=== PATIENT | male | born 1990 | race Caucasian/White ===

== ENCOUNTER 2020-07-04 15:13 | Emergency (ER) | payer OTHER, SELFPAY ==
[2020-07-04 15:19] VITALS: BP 138/86; PULSE 125; RESP 18; TEMP 36.8; O2SAT 100; BMI 28.2
--- NOTE | 2020-07-04 16:02 | ED.GENADULT ---
HPI - General Adult General Chief complaint: Overdose Stated complaint: HEROIN OD,NARCAN GIVEN BY POLIE Time Seen by Provider: 07/04/20 15:51 Source: patient Mode of arrival: EMS Limitations: no limitations History of Present Illness HPI narrative: 30-year-old male who presents emergency department for evaluation of a narcotic overdose. The patient states that he recently was in rehab for heroin and cocaine use disorder. He states that when he was discharged from rehab, he started living with his girlfriend but this became a very difficult situation and triggered him to reuse heroin today. He states that he used 2 bags of heroin and 2 bags of cocaine injected into his right arm. He does not remember what happened but he states there was a friend that was with him who called 911. The patient was given multiple doses of intranasal heroin by the police and responded well to this treatment. He is currently awake alert has no complaints. He states that he was in his usual state of health until be used today. He denied fever, chills, chest pain, shortness of breath, nausea, vomiting, abdominal pain, diarrhea, myalgias or arthralgias. The patient states that in the past he was helped by the police to get into rehab and to get help as an outpatient any has a number to call a corporate trust officer for help. He does not want crisis counseling at this time. Related Data Previous Rx's Medication Instructions Recorded naloxone [Narcan] 4 mg INTRANASAL Q2M PRN #2 ea 07/04/20 Allergies Allergy/AdvReac Type Severity Reaction Status Date / Time amoxicillin [AMOXICILLIN] Allergy Intermediate HIVES Unverified 03/02/20 19:28 Review of Systems Review of Systems: Yes all other systems are reviewed and are negative Neurologic: Reports Abnormal speech present [facility] Past Medical History [facility] Narrative: Patient has a history of hepatitis-C but he states he was recently treated in believes that he is cured but has not followed up. The patient has a history of an appendectomy and bladder surgery in the past. He states that he smokes 3 cigarettes per day. Denies alcohol use. He states that he was using heroin daily prior to going to detox and relapse for the 1st time today and used cocaine and heroin as an injection into his right arm today. Medical History (Updated 07/04/20 @ 16:11 by Michael Rivera MD) Substance abuse Social History Social History Alcohol intake: never Smoked in Last 30 Days: No Use of substances other than those prescribed or required for medical reasons: Yes Substance Use Type: Crack/Cocaine and Heroin Advance Directives: No Advance Directives Information Provided: Yes Physical Exam Vital Signs: Vital Signs: Last Vital Signs Temp 98.2 F 07/04/20 15:19 Pulse 125 H 07/04/20 15:19 Resp 18 07/04/20 15:19 BP 138/86 07/04/20 15:19 Pulse Ox 100 07/04/20 15:19 Body Mass Index 28.2 Const: General: cooperative and healthy appearing Orientation/consciousness: oriented to person and oriented to place Limitations: no limitations HENMT: Head: Yes normal to inspection, Yes normocephalic and Yes atraumatic Ears: external ears normal General nose exam: Normal external nose present Face and sinus: Yes normal facial exam Mouth: Normal oral and palatal mucosa present Throat: Yes posterior oropharynx normal Eyes: Periorbital: periorbital findings normal Eyelids: Yes eyelids normal Conjunctivae: conjunctivae normal Sclerae: sclerae normal Corneas: corneas normal Pupils: Equal, round and reactive pupils present Direct Ophthalmoscopy: normal light reflex Neck: Neck: Yes full ROM, Yes no lymphadenopathy, Yes no meningeal signs, Yes trachea midline and Yes supple Chest: Chest palpation & inspection: normal inspection of the chest and normal palpation of entire chest wall Resp: Effort & Inspection: normal respiratory effort and able to speak in complete sentences Auscultation: clear to auscultation bilaterally Cardio: Rate: regular rate Rhythm: regular rhythm Heart sounds: S1 normal heart sound present, S2 normal heart sound present and no murmurs GI: Inspection: Yes normal to inspection Palpation (GI): Soft to palpation, nontender, no guarding, not rigid and No hepatosplenomegaly present : General: Yes no CVA tenderness Back/Spine/Pelvis: Back: no CVA tenderness Cervical Spine: normal cervical lordosis Thoracic/Lumbar Spine: thoracic and lumbar spine normal to inspection Skin: Other: Puncture site above the right axilla, does not appear to be infected, no hematoma or bruising. Does have other track curiel in this area that are well healed. Lesions: no lesions Rashes: no rashes Wounds: no wounds Neuro: General: oriented to person, oriented to place and no meningeal signs Cranial nerves: Yes CN's II-XII intact bilaterally and Yes Equal, round and reactive pupils present Cognition (Neuro): normal cognition Speech: Abnormal speech present Motor exam (neuro): 5/5 motor strength present throughout Extrem: General: Yes normal to inspection and Yes full ROM Psych: Appearance: well kempt Mental Status: mental status grossly normal Speech and movement: Normal speech and movement present Affect: normal affect Attitude: cooperative Thought process: Normal thought process present Thought content: Normal thought content present Course Course Course Narrative: 30-year-old male with a history of polysubstance use disorder (heroin and cocaine) who injected 2 bags of heroin and cocaine today and became unresponsive. The patient was treated with intranasal Narcan, multiple doses by police with good response. The patient currently has no complaints. The patient just recently got out of rehab and is not interested in getting crisis counseling today. He states that he has a corporate trust officer that helped him get into crisis counseling last time and he wants to contact this corporate trust officer again for help. The patient will be given intranasal Narcan dispensed by the emergency department. He was also written a prescription for intranasal Narcan. I did discuss safe ways of using narcotics if he continues to use, specifically told him he needs to inject a narcotic when there is a friend who is sober and can monitor him. I also discussed cleaning his skin and using clean water and needles when injecting heroin and other drugs. I did tell the patient that the narcotic that injectate could last anywhere from 2-4 hours and we recommend that he stay in the emergency department for 2 hours however he states that he wants to leave at this point and he does understand that he could leave, the narcotic kicking and he can go into a narcotic coma and . The patient states that he understands this risk and still wants to leave. Discharge Plan Discharge Clinical Impression: Opiate abuse, episodic, Cocaine abuse Narcotic overdose Qualifiers: Encounter type: initial encounter Injury intent: accidental or unintentional Qualified Code(s): T40.601A - Poisoning by unspecified narcotics, accidental (unintentional), initial encounter Patient Disposition: Home, Self-Care Instructions: Narcotic Safety (ED), Opioid Use Disorder (ED) Additional Instructions: You overdosed on and opiate today and were treated with multiple doses of intranasal Narcan. Sometimes the opiate that you overdosed on can last longer than the Narcan therefore recommended that she wait in the emergency department for least 2 hours. You elected to leave, you should make sure that someone stays with you for the next several hours and if you lose consciousness again they should administer the intranasal, Narcan. Contact the corporate trust officer that help to in the past to get into detox. If you want to we can also help you get into a detox program and get crisis counseling therefore you can return to the emergency department or call the crisis service. Follow-up with your doctor in 2 days. Please return to the emergency department if your symptoms get worse or if you develop any symptoms that are concerning to you. Prescriptions: New Narcan 4 mg/actuation spray,non-aerosol 4 mg intranasal Q2M PRN (Reason: opioid overdose) Qty: 2 RF: 0
== END 2020-07-04 16:18 | disposition home or self-care (01) ==
PROVIDERS: Emergency Provider Emergency Medicine Emergency Medical Services
DX: T50.991A Poisoning by other drugs, medicaments and biological substances, accidental (unintentional), initial encounter (principal); R40.4 Transient alteration of awareness; Y92.9 Unspecified place or not applicable; F11.10 Opioid abuse, uncomplicated; F14.10 Cocaine abuse, uncomplicated
CPT/HCPCS: 99283; 99284

== ENCOUNTER 2020-08-18 00:25 | Emergency (ER) | payer OTHER, SELFPAY ==
[2020-08-18 00:27] VITALS: BP 131/66; PULSE 93; RESP 16; O2SAT 96; BMI 28.1
--- NOTE | 2020-08-18 00:29 | ED.PSYCH ---
HPI - Psych General Chief Complaint: Psychiatric Symptoms Stated Complaint: crisis Time Seen by Provider: 08/18/20 00:29 Source: patient Mode of arrival: ambulatory Limitations: no limitations History of Present Illness HPI Narrative: History of substance abuse IV DA heroin and cocaine unable to find a place to sleep tonight, used 3 bags of heroin 2 hours prior to arrival was on the street was feeling down after speaking with Officer feels okay denies any suicidal ideation or homicidal feelings just would like to stay in the ER till morning so that he can sleep. Denies any help for detox. Patient been sober for few months and started again for last few days which he has been doing since age 20 complaint: substance abuse Related Data Previous Rx's Medication Instructions Recorded naloxone [Narcan] 4 mg INTRANASAL Q2M PRN #2 ea 07/04/20 Allergies Allergy/AdvReac Type Severity Reaction Status Date / Time amoxicillin [AMOXICILLIN] Allergy Intermediate HIVES Verified 08/18/20 00:27 Review of Systems Review of Systems: Constitutional : No Fever, No Chills ENT/Mouth : No Ear Pain, No Nasal Congestion, No sore throat Eyes: No Eye Pain, No Swelling, No Redness Cardiovascular : No Chest Pain, No SOB Respiratory : No Cough, No Sputum, No Dyspnea Gastrointestinal : No Nausea, No Vomiting, No Diarrhea, No Hematochezia, No Melena Genitourinary : No Dysuria, No Urinary Frequency, No Hematuria Musculoskeletal : No Myalgias Skin : No Skin Lesions, No rash Neuro : No Weakness, No Numbness, No Paresthesias, No Dizziness, No Headache Psych :neg Anxiety, neg Depression, neg SI/HI Heme/Lymph: No Lymphadenopathy Endocrine : No Polyuria, No Polydipsia PMFSH Past Medical History Medical History Substance abuse Social History Social History Alcohol intake: unknown Smoking Status: Current every day smoker Smoked in Last 30 Days: Yes Use of substances other than those prescribed or required for medical reasons: Yes Substance Use Type: Crack/Cocaine, Heroin, IV Drugs and Marijuana Substance Use Frequency: Chronic Longstanding Last Used Substance: Hours (ago) Any prior treatment program specific to substance use: Yes Advance Directives: No Physical Exam Vital Signs: Vital Signs: Last Vital Signs Pulse 93 08/18/20 00:27 Resp 16 08/18/20 00:27 BP 131/66 08/18/20 00:27 Pulse Ox 96 08/18/20 00:27 Body Mass Index 28.1 Appearance: Alert. Oriented X3. No acute distress. Eyes: Pupils equal, round and reactive to light. ENT: Pharynx normal. Neck: Normal inspection. Neck supple. CVS: Normal heart rate and rhythm. Pulses normal. Respiratory: No respiratory distress. Breath sounds normal. Abdomen: Soft and nontender. Bowel sounds are present, no mass palpable, no CVA tenderness Skin: Skin warm and dry. Normal skin color. Normal skin turgor. IVDA curiel++ Extremities: No lower extremity edema. Neuro: Oriented X 3. No motor deficit. No sensory deficit. psych: mood Normal, denies suicidal ideation no hallucinations judgment fair MDM - Psych MDM Narrative Medical decision making narrative: Patient with history of substance abuse homeless denies any suicidal ideation, took 3 bags of heroin 2 hours ago , came here for help her he can sleep tonight desaturated to 88% at room air and falls asleep when he is awake saturating 96% on room air will give him some food to eat and some coffee watch him overnight will discharge him in the morning, refused to go for detox Discharge Plan Discharge Clinical Impression: Heroin abuse Prescriptions: No Action Narcan 4 mg/actuation spray,non-aerosol 4 mg intranasal Q2M PRN (Reason: opioid overdose) Qty: 2 RF: 0
--- NOTE | 2020-08-18 00:39 | PC.NURSE ---
ATTEMPTING TO GET PATIENT TO MERCHANDISING COORDINATOR. UPSET ABOUT HAVING THINGS LOCKED UP. I SHOULD OF FUCKING OVERDOSED THEN . DISCUSSED WITH PATIENT THAT WE NEED TO F/U WHEN HE MAKES STATEMENTS LIKE THAT.
--- NOTE | 2020-08-18 00:57 | PC.NURSE ---
PUPILS PINPOINT. DENIES SI. DOES NOT WANT DETOX. PLACED ON ETCO2
--- NOTE | 2020-08-18 01:01 | PC.NURSE ---
RESPIRATIONS OF 8. ETCO2 56. WOKE PATIENT UP. UPSET THAT THIS NURSE NEEDED TO WAKE HIM UP AND NOT LET HIM SLEEP.
--- NOTE | 2020-08-18 01:25 | PC.NURSE ---
PATIENT SPILLED COFFEE ON HIMSELF WHEN NODDING OFF. CLOTHING CHANGED. NOW WANTS A NEW COFFEE. EXPLAINED TO PATIENT THAT HE NEEDS TO BE ABLE TO STAY AWAKE FIRST BEFORE HE CAN HAVE ANOTHER HOT COFFEE.
--- NOTE | 2020-08-18 01:31 | PC.NURSE ---
PATIENT MEETING WITH PAULA FROM CARE TEAM AT THIS TIME..
[2020-08-18 02:08] VITALS: RESP 14
--- NOTE | 2020-08-18 02:24 | MHC.CARE ---
CARE Team meets with pt after speaking with CALI Thompson. Pt appears to be heavily under the influence, reporting that he relapsed after being sober for over a year. He identifies that a recent breakup triggered him to use. Pt was brought to the ED after found standing in the road by police. Pt admits to feeling helpless and hopeless, and extremely frustrated that he relapsed. He states that he feels reluctant to discuss suicide, fearing that providers will hold him in the ED against his will. Pt states that he was not thinking clearly when he went into the street, and did not think through what could happen. He denies suicidal plan or intent at this time. He states that he does want to go to detox, but first wants to get his belongings out of storage. Pt states that he has worked with Jody Larson in the past, and states that he would like their assistance. CARE Team encourages pt to remain in the ED in the morning and speak with a baseball coach. In the event that pt is d/c without seeing a baseball coach, CARE Team provides contact info for Jody Larson. Pt is currently homeless and has nowhere to go. He agrees to return to the ED or call crisis hotline if he is feeling suicidal. CARE Team recommends that level of risk be evaluated in the morning prior to discharging pt, as current assessment is unreliable given that pt is still under the influence.
--- NOTE | 2020-08-18 02:33 | PC.NURSE ---
PATIENT SLEEPING. RESPIRATIONS DOWN TO 10. PATIENT IS AROUSABLE. SATS 90-95%. PLACED ON 2L NC. BACK ON CAPNOGRAPHY. PATIENT MINIMALLY ABLE TO STAY AWAKE FOR CONVERSATION. ONLY TIME HE WAKES UP IS WHEN DISCUSSION OF NEED FOR NARCAN. PATIENT GETS UPSET AND THAT NARCAN IS BEING DISCUSSED. UNSTEADY ON FEET.
--- NOTE | 2020-08-18 02:53 | PC.NURSE ---
CARE TEAM RECOMMENDING PATIENT STAY TO BE SCREENED FOR RISK IN THE MORNING.
[2020-08-18 03:20] VITALS: BP 123/53; PULSE 74; RESP 11; O2SAT 97
== END 2020-08-18 06:10 | disposition home or self-care (01) ==
PROVIDERS: Emergency Provider Emergency Medicine Emergency Medical Services
DX: F11.10 Opioid abuse, uncomplicated (principal); F14.10 Cocaine abuse, uncomplicated; F17.200 Nicotine dependence, unspecified, uncomplicated; Z59.0 Homelessness
CPT/HCPCS: 99284

== ENCOUNTER 2020-12-06 05:57 | Emergency (ER) | payer OTHER, SELFPAY ==
[2020-12-06 06:28] VITALS: BP 112/58; PULSE 85; RESP 13; TEMP 36; O2SAT 98; BMI 26.6
--- NOTE | 2020-12-06 06:52 | ED.OVERDOSE ---
HPI - Overdose General Chief Complaint: Overdose Stated Complaint: ?Overdose Time Seen by Provider: 12/06/20 06:52 Source: patient Mode of arrival: ambulatory Limitations: no limitations History of Present Illness HPI Narrative: Patient got out of retirement and did 15 bags of heroine. Friends brought him to the ED. Patient wants help for his addiction complaint: accidental overdose Onset (ago): hour(s) Timing confirmed by: other (friends) Intent: other (patient was just trying to get high) How Overdose Was Discovered: family/friend present at time Context: Accidental Overdose: wanted to get high Treatments Prior to Arrival: none Related Data Previous Rx's Medication Instructions Recorded naloxone [Narcan] 4 mg INTRANASAL Q2M PRN #2 ea 07/04/20 Allergies Allergy/AdvReac Type Severity Reaction Status Date / Time amoxicillin [AMOXICILLIN] Allergy Intermediate HIVES Verified 08/18/20 00:27 Review of Systems Constitutional: Constitutional: Reports no additional constitutional complaints Eyes: Eyes: Reports no additional eye complaints ENT: Denies dizziness Cardiovascular: Cardiovascular: Reports no additional cardiovascular complaints Respiratory: Respiratory: Reports as per HPI Gastrointestinal: Gastrointestinal: Reports no additional gastrointestinal complaints Musculoskeletal: Musculoskeletal: Reports no additional musculoskeletal complaints Integumentary/Breasts: Skin/Breast: Denies rash Neurologic: Reports system reviewed and no additional complaints, except as documented, Denies dizziness and Denies Sensory deficit (Neuro) Psychiatric: Psychiatric: Denies anxiety PMFSH Past Medical History Medical History Substance abuse Social History Social History Alcohol intake: never Patient Tobacco Use Status: Current everyday Tobacco user Use of substances other than those prescribed or required for medical reasons: Yes Substance Use Type: Crack/Cocaine and Heroin Substance Use Frequency: Chronic Longstanding Advance Directives: Yes Advance Directives Information Provided: Yes Advance Directives on File: No Physical Exam Vital Signs: Vital Signs: Last Vital Signs Temp 96.8 F 12/06/20 06:28 Pulse 87 12/06/20 07:17 Resp 19 12/06/20 07:17 BP 102/55 L 12/06/20 07:17 Pulse Ox 98 12/06/20 06:28 Body Mass Index 26.6 Const: Other: male slightly slurred looking older than stated age Nutritional Appearance: average body habitus Orientation/consciousness: oriented to person and patient oriented x3 Limitations: no limitations HENMT: Head: Yes normal to inspection Ears: external ears normal General nose exam: Normal external nose present Mouth: Normal oral and palatal mucosa present and oropharynx normal Throat: Yes posterior oropharynx normal Eyes: General: appearance normal, both eyes and all related structures Neck: Other: supple Neck: Yes normal visual inspection Chest: Chest palpation & inspection: normal inspection of the chest Resp: Auscultation: clear to auscultation bilaterally Cardio: Jugular venous distension: no JVD Rate: regular rate Rhythm: regular rhythm Heart sounds: S1 normal heart sound present and S2 normal heart sound present GI: Inspection: Yes normal to inspection Palpation (GI): Soft to palpation, nontender and No hepatosplenomegaly present Auscultation: normal bowel sounds : General: Yes no CVA tenderness Back/Spine/Pelvis: Back: no CVA tenderness Skin: General skin exam: no rashes or lesions noted Neuro: General: oriented to person and patient oriented x3 Cranial nerves: Yes CN's II-XII intact bilaterally Motor exam (neuro): 5/5 motor strength present throughout Sensory Exam: No Sensory deficit (Neuro) Extrem: General: Yes normal to inspection Psych: Appearance: grossly normal Course Reevaluation(s) Reevaluation #1: seen and cleared by care team for methadone clinic and counseling Time: 09:59 MDM - Overdose Lab Data Result diagrams: 12/06/20 07:20 12/06/20 07:20 Labs: Lab Results 12/06/20 12/06/20 12/06/20 Range/Units 07:20 07:20 07:20 WBC 12.1 H (4.8-10.8) X10*3/uL RBC 4.30 L (4.60-5.80) X10*6/uL Hgb 12.8 L (14.0-18.0) g/dl Hct 36.9 L (42-52) % MCV 85.8 (80-98) fL MCH 29.8 (27.0-33.0) pg MCHC 34.7 (31.0-36.0) g/dl RDW 12.7 (11.0-16.0) % Plt Count 279 (160-400) X10*3/uL MPV 9.8 (9.4-12.4) fL Immature Gran % (Auto) 0.2 (0.0-0.4) % Neut % (Auto) 54.8 (45-73) % Lymph % (Auto) 37.2 (20-40) % Sampson % (Auto) 6.5 (2-11) % Eos % (Auto) 1.0 (0-4) % Baso % (Auto) 0.3 (0-2) % Lymph # (Auto) 4.5 (1.2-4.9) X10*3/uL Sampson # (Auto) 0.8 (0.1-1.2) X10*3/uL Eos # (Auto) 0.1 (0.0-0.4) X10*3/uL Baso # (Auto) 0.0 (0.0-0.2) X10*3/uL Abs Immat Gran (auto) 0.03 (0.00-0.03) X10*3/uL Absolute Neuts (auto) 6.6 (2.0-8.3) X10*3/uL Absolute Nucleated RBC 0.000 (0.0-0.012) X10*3/uL Nucleated RBC % (auto) 0.0 (0.0-0.2) /100WBC Sodium 135 (135-145) mmol/L Potassium 3.7 (3.3-5.1) mmol/L Chloride 102 (96-108) mmol/L Carbon Dioxide 23 (22-29) mmol/L Anion Gap 14 (12-20) BUN 22 H (9-16) mg/dL Creatinine 1.44 H (0.5-1.4) mg/dL Estim Creat Clear Calc 67.6 Estimated GFR 58 Random Glucose 160 H (60-115) mg/dL Calcium 9.5 (8.4-10.2) mg/dL Salicylates < 5.0 L (15-30) mg/dL Acetaminophen < 1 (<30) mcg/mL Ethyl Alcohol < 10 mg/dL Discharge Plan Discharge Clinical Impression: Drug overdose Qualifiers: Encounter type: initial encounter Injury intent: accidental or unintentional Qualified Code(s): T50.901A - Poisoning by unspecified drugs, medicaments and biological substances, accidental (unintentional), initial encounter Patient Disposition: Home, Self-Care Additional Instructions: Angelita Larson for [facility]adone at [facility]. Referral to [facility] for counseling and gymnastic coach Prescriptions: No Action Narcan 4 mg/actuation spray,non-aerosol 4 mg intranasal Q2M PRN (Reason: opioid overdose) Qty: 2 RF: 0 Referrals: Physician,Unknown [Primary Care Provider] - 2 days
--- NOTE | 2020-12-06 06:58 | ECG_ITS ---
Test Reason : OVERDOSE Blood Pressure : / mmHG Vent. Rate : 075 BPM Atrial Rate : 075 BPM P-R Int : 150 ms QRS Dur : 094 ms QT Int : 390 ms P-R-T Axes : 046 035 062 degrees QTc Int : 435 ms Normal sinus rhythm Nonspecific ST and T wave abnormality Abnormal ECG When compared with ECG of 03-JAN-2019 20:37, Nonspecific ST-T changes Referred By: Jason Veloz Electronically Signed By:Matt Lees
[2020-12-06 07:17] VITALS: BP 102/55; PULSE 87; RESP 19
[2020-12-06 07:37] LABS: MANUAL DIFF FLAG NO
[2020-12-06 07:49] LABS: Basophils Percent Auto 0.3 % (0-2); Eosinophils Absolute Auto 0.1 X10*3/uL (0.0-0.4); Hematocrit 36.9 % (42-52); Hemoglobin 12.8 g/dl (14.0-18.0); Imm Gran Abs Auto 0.03 X10*3/uL (0.00-0.03); Imm Gran Pct Auto 0.2 % (0.0-0.4); Lymphocytes Absolute Auto 4.5 X10*3/uL (1.2-4.9); Lymphocytes Percent Auto 37.2 % (20-40); Mean Corpuscular HGB Conc 34.7 g/dl (31.0-36.0); Mean Corpuscular Hemoglobin 29.8 pg (27.0-33.0); Mean Corpuscular Volume 85.8 fL (80-98); Mean Platelet Volume 9.8 fL (9.4-12.4); Monocytes Absolute Auto 0.8 X10*3/uL (0.1-1.2); Monocytes Percent Auto 6.5 % (2-11); Neutrophils Absolute Auto 6.6 X10*3/uL (2.0-8.3); Neutrophils Percent Auto 54.8 % (45-73); Platelet Count 279 X10*3/uL (160-400); Red Cell Distribution Width 12.7 % (11.0-16.0); White Blood Count 12.1 X10*3/uL (4.8-10.8)
[2020-12-06 08:14] LABS: Ethanol < 10 mg/dL
[2020-12-06 08:17] LABS: Acetaminophen LAB < 1 mcg/mL (<30); Anion Gap 14 (12-20); Blood Urea Nitrogen 22 mg/dL (9-16); Calcium 9.5 mg/dL (8.4-10.2); Carbon Dioxide 23 mmol/L (22-29); Chloride 102 mmol/L (96-108); Creatinine Clr Calc Pharmacy 67.6; Estimated Glomerular Filt Rate 58; Glucose Random 160 mg/dL (60-115); Potassium 3.7 mmol/L (3.3-5.1); Salicylate < 5.0 mg/dL (15-30); Sodium 135 mmol/L (135-145)
--- NOTE | 2020-12-06 09:30 | PC.NURSE ---
Patient sitting up in bed in no distress
--- NOTE | 2020-12-06 09:59 | PC.NURSE ---
Recovery client support professional, Tuyet LEIVA, states she has talked with patient and arrangements has been made for patient to go the [facility] walkin clinic on [address]. A ride has been arranged for patient for 103
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
[2020-12-06 10:03] VITALS: BP 104/63; PULSE 90; RESP 14; O2SAT 95
--- NOTE | 2020-12-06 11:06 | MHC.RECOVSUP ---
? Reason for consult:Continuity of care o Current location:Discharged o Identified substance use concern:Heroin - Overdose - Withdrawal - Support ? Intervention o MAT started or to be started o Community resources provided o Harm reduction discussion ? Plan: o Patient to follow up with [facility] after discharge ? Additional information: Pt. discharhed to [facility] van and taken to [address] [place] [address] [facility] to be started on Methadone.
== END 2020-12-06 10:11 | disposition home or self-care (01) ==
PROVIDERS: Emergency Provider Emergency Medicine
DX: T40.1X1A Poisoning by heroin, accidental (unintentional), initial encounter (principal); Y92.9 Unspecified place or not applicable
CPT/HCPCS: 36415; 80048; 80143; 80179; 82077; 85025; 93005; 99283; 99285

== ENCOUNTER 2020-12-08 19:40 | Emergency (ER) | payer OTHER, SELFPAY ==
[2020-12-08 19:42] VITALS: BMI 29.0
[2020-12-08 19:52] VITALS: BP 92/56; PULSE 82; RESP 18; TEMP 36.1
--- NOTE | 2020-12-08 22:06 | ED.PSYCH ---
HPI - Psych General Chief Complaint: ETOH/Substance Use Stated Complaint: Drug Use Time Seen by Provider: 12/08/20 22:04 Source: patient and EMS Mode of arrival: EMS History of Present Illness HPI Narrative: Patient history of substance abuse used 3 bags of cocaine heroin earlier today was walking on the street and walked into a gate without any fall or injury came to the ER for opiate overdose sleepy , breathing okay otherwise saturating 96% at room air Related Data Previous Rx's Medication Instructions Recorded naloxone [Narcan] 4 mg INTRANASAL Q2M PRN #2 ea 07/04/20 Allergies Allergy/AdvReac Type Severity Reaction Status Date / Time amoxicillin [AMOXICILLIN] Allergy Intermediate HIVES Verified 08/18/20 00:27 Review of Systems Review of Systems: Yes all other systems are reviewed and are negative PMFSH Past Medical History Medical History Substance abuse Social History Social History Alcohol intake: current Alcohol intake frequency: 3 or more drinks per day Patient Tobacco Use Status: Current everyday Tobacco user Smoked in Last 30 Days: Yes Use of substances other than those prescribed or required for medical reasons: Yes Substance Use Type: Amphetamines, Crack/Cocaine, IV Drugs, Marijuana, Opiates, Painkillers and Prescription Drugs Substance Use Frequency: Chronic Longstanding Advance Directives: No Advance Directives Information Provided: Yes Physical Exam Vital Signs: Vital Signs: Last Vital Signs Temp 97.0 F 12/08/20 19:52 Pulse 82 12/08/20 19:52 Resp 18 12/08/20 19:52 BP 92/56 L 12/08/20 19:52 Body Mass Index 29.0 Appearance: Alert. Oriented X3. No acute distress. Sleepy but easily arousable Eyes: PERRLA, No Nystagmus ENT: Pharynx normal. Oral Mucosa moist Neck: Normal inspection. Neck supple. CVS: Normal heart rate and rhythm. Pulses normal. Respiratory: No respiratory distress. Equal air entry bilateral, no wheezing/rales/rhonchi Abdomen: Soft and nontender. Bowel sounds are present, no mass palpable, no CVA tenderness Skin: Skin warm and dry. Normal skin color. Normal skin turgor. Extremities: No lower extremity edema. No calf tenderness Neuro: Oriented X 3. No motor deficit. No sensory deficit.No cerebellar signs , cranial nerves II-XII intact MDM - Psych MDM Narrative Medical decision making narrative: Patient with opiate abuse disorder keeping his oxygen normal had food in the ER walking in the ER stable in gait to discharge patient home, refused to go to detox Discharge Plan Discharge Clinical Impression: Opiate abuse, continuous Patient Disposition: Home, Self-Care Instructions: Opioid Use Disorder (ED) Additional Instructions: Follow up with detox Prescriptions: No Action Narcan 4 mg/actuation spray,non-aerosol 4 mg intranasal Q2M PRN (Reason: opioid overdose) Qty: 2 RF: 0 Interventions: ED Discharge Assessment Last Done: 12/08/20 22:15 Discharge Date/Time: 12/08/20 22:15
== END 2020-12-08 22:15 | disposition home or self-care (01) ==
PROVIDERS: Emergency Provider Internal Medicine
DX: F11.10 Opioid abuse, uncomplicated (principal)
CPT/HCPCS: 99283; 99285

== ENCOUNTER 2021-02-11 05:52 | Emergency (ER) | payer OTHER, SELFPAY ==
[2021-02-11 05:58] VITALS: BP 93/67; PULSE 61; RESP 18; TEMP 36.7; O2SAT 98; BMI 25.8
--- NOTE | 2021-02-11 06:59 | ED_ITS ---
HPI - General Adult General Chief complaint: Extremity Injury, Lower Stated complaint: KIP FOOT PAIN, NO INJURY Time Seen by Provider: 02/11/21 06:59 Source: patient Mode of arrival: ambulatory Limitations: no limitations History of Present Illness HPI narrative: This is a 30 years old patient the homeless presented to the emergency department with a chief complaint of bilateral feet pain, is been walking around the a lot he just uses heroin Onset (ago): week(s) Location: lower extremity (Feet) Radiation: non-radiation Severity: mild Quality: burning Pain Consistency: constant Relieving factors: none Exacerbating factors: other (Walking) Associated symptoms: denies other symptoms Related Data Previous Rx's Medication Instructions Recorded naloxone 4 mg/actuation nasal 4 mg INTRANASAL Q2M PRN #2 ea 07/04/20 spray (Narcan) Allergies Allergy/AdvReac Type Severity Reaction Status Date / Time amoxicillin [AMOXICILLIN] Allergy Intermediate HIVES Verified 08/18/20 00:27 Review of Systems Review of Systems: Yes all other systems are reviewed and are negative Constitutional: Constitutional: Reports no additional constitutional complaints Eyes: Eyes: Reports no additional eye complaints Cardiovascular: Cardiovascular: Reports no additional cardiovascular complaints Respiratory: Respiratory: Reports no additional respiratory complaints [facility] Past Medical History [facility] Narrative: History of substance abuse Medical History Substance abuse Social History Social History Alcohol intake: current Alcohol intake frequency: 3 or more drinks per day Patient Tobacco Use Status: Current everyday Tobacco user Substance Use Type: Amphetamines, Crack/Cocaine, IV Drugs, Marijuana, Opiates, Painkillers and Prescription Drugs Advance Directives: No Advance Directives Information Provided: No Physical Exam Vital Signs: Vital Signs: Last Vital Signs Temp 98.1 F 02/11/21 05:58 Pulse 52 02/11/21 10:08 Resp 14 02/11/21 10:08 BP 132/80 02/11/21 10:08 Pulse Ox 95 02/11/21 10:08 Body Mass Index 25.8 Const: General: cooperative (Lethargic but easily arousable under the influence of opioids) Nutritional Appearance: average body habitus Orientation/consciousness: oriented to person HENMT: Head: Yes normal to inspection and Yes No palpable skull fracture present Ears: hearing grossly normal bilaterally General nose exam: Normal external nose present Neck: Neck: Yes normal visual inspection Thyroid: Thyroid normal Carotids: normal carotid upstroke Chest: Chest palpation & inspection: normal inspection of the chest Resp: Effort & Inspection: normal respiratory effort Auscultation: clear to auscultation bilaterally Cardio: Jugular venous distension: no JVD Rate: regular rate Rhythm: regular rhythm GI: Inspection: Yes normal to inspection Palpation (GI): Soft to palpation, not firm, nontender and no guarding Auscultation: normal bowel sounds Back/Spine/Pelvis: Pelvis: no pain with anterior-posterior compression Skin: General skin exam: no rashes or lesions noted Neuro: General: oriented to person Extrem: Other: Extremity examination shows no swelling no deformity very poor hygiene in the feet Discharge Plan Discharge Clinical Impression: Foot pain, bilateral, Opioid abuse Patient Disposition: Home, Self-Care Instructions: Opioid Use Disorder (ED) Additional Instructions: FOLLOW-UP WITH YOUR PRIMARY CARE PHYSICIAN OR RETURN IF YOU WORSE ACUTE FEW FEET ELEVATED Prescriptions: No Action Narcan 4 mg/actuation spray,non-aerosol 4 mg intranasal Q2M PRN (Reason: opioid overdose) Qty: 2 RF: 0 Referrals: Physician,Unknown [Primary Care Provider] - 2 days Interventions: ED Discharge Assessment Last Done: 02/11/21 10:37 Discharge Date/Time: 02/11/21 10:37
[2021-02-11 07:02] VITALS: BP 118/68; PULSE 62; RESP 12; O2SAT 97
[2021-02-11 10:08] VITALS: BP 132/80; PULSE 52; RESP 14; O2SAT 95
== END 2021-02-11 10:37 | disposition home or self-care (01) ==
PROVIDERS: Emergency Provider Emergency Medicine
DX: M79.671 Pain in right foot (principal); M79.672 Pain in left foot; F11.19 Opioid abuse with unspecified opioid-induced disorder; Z71.51 Drug abuse counseling and surveillance of drug abuser; Z79.899 Other long term (current) drug therapy
CPT/HCPCS: 99284

== ENCOUNTER 2021-04-24 04:35 | Emergency (ER) | payer OTHER, SELFPAY ==
[2021-04-24 04:43] VITALS: BP 140/83; PULSE 96; RESP 18; TEMP 36.5; O2SAT 96; BMI 29.2
--- NOTE | 2021-04-24 05:15 | ED.MALEGU ---
HPI - Male Genitourinary General Chief complaint: Urogenital-Male Stated complaint: Difficulty urinating Time Seen by Provider: 04/24/21 04:48 Source: patient Mode of arrival: ambulatory Limitations: no limitations History of Present Illness MD Complaint: penile discharge and dysuria Onset (ago): day(s) (2) Duration: intermittent Location: penis Radiation: penis Severity: mild Quality: burning Relieving factors: urination Exacerbating factors: none Context: new sexual partner Associated symptoms: Reports discharge Related Data Previous Rx's Medication Instructions Recorded naloxone 4 mg/actuation nasal 4 mg INTRANASAL Q2M PRN #2 ea 07/04/20 spray (Narcan) doxycycline hyclate 100 mg capsule 100 mg PO BID 7 Days #14 cap 04/24/21 Allergies Allergy/AdvReac Type Severity Reaction Status Date / Time amoxicillin [AMOXICILLIN] Allergy Intermediate HIVES Verified 08/18/20 00:27 Review of Systems Review of Systems: Constitutional : No Fever, No Chills, ENT/Mouth : No sore throat, No Rhinorrhea, pos dental pain Cardiovascular : No Chest Pain, No SOB Respiratory : No Cough, No Sputum, No Wheezing Gastrointestinal : No Nausea, No Vomiting, No Diarrhea,No abdominal Pain Genitourinary : pos Dysuria, No Urinary Frequency, No Hematuria, pos penile discharge Skin : No Skin Lesions, No rash Neuro : No Weakness, No Numbness, No Dizziness, No Headache PMFSH Past Medical History Medical History Substance abuse Social History Social History Alcohol intake: current Alcohol intake frequency: 3 or more drinks per day Patient Tobacco Use Status: Current everyday Tobacco user Substance Use Type: Amphetamines, Crack/Cocaine, IV Drugs, Marijuana, Opiates, Painkillers and Prescription Drugs Advance Directives: No Physical Exam Vital Signs: Vital Signs: Last Vital Signs Temp 97.7 F 04/24/21 04:43 Pulse 96 04/24/21 04:43 Resp 18 04/24/21 04:43 BP 140/83 H 04/24/21 04:43 Pulse Ox 96 04/24/21 04:43 Body Mass Index 29.2 Appearance: Alert. Oriented X3. No acute distress. Eyes: Pupils equal, round and reactive to light. ENT: Pharynx normal. Poor dentition reports pain L lower side no abscess Neck: Normal inspection. Neck supple. CVS: NPulses normal. Respiratory: No respiratory distress. Abdomen: Soft and nontender. : deferred in hallway Skin: Skin warm and dry. Normal skin color. Extremities: No lower extremity edema. Neuro: Oriented X 3. No motor deficit. No sensory deficit. MDM - Male Genitourinary MDM Narrative Medical decision making narrative: 31 yo male with STI exposure - here with drainage and some dysuria also c/o chronic L lower dental pain no signs of infection - ceftriaxone/doxy, stable for DC Discharge Plan Discharge Clinical Impression: Urethritis Patient Disposition: Home, Self-Care Instructions: Sexually Transmitted Diseases (ED) Additional Instructions: return to ED for any worsening symptoms or concerns please notify your partners so you don't pass any STDs back and forth finish all antibiotics Prescriptions: New doxycycline hyclate 100 mg capsule 100 mg PO BID 7 Days Qty: 14 RF: 0 No Action Narcan 4 mg/actuation spray,non-aerosol 4 mg intranasal Q2M PRN (Reason: opioid overdose) Qty: 2 RF: 0
[2021-04-24] MEDS: cefTRIAXone sodium 500 MG, Lidocaine HCl 1 % MPF 1 ML IM (05:41)
[2021-04-24 08:29] LABS: CT PCR NOT DETECTED (Not Detect.); NG PCR DETECTED (Not Detect.)
== END 2021-04-24 06:19 | disposition home or self-care (01) ==
PROVIDERS: Emergency Provider Emergency Medicine
DX: A54.9 Gonococcal infection, unspecified (principal); N34.2 Other urethritis; F19.10 Other psychoactive substance abuse, uncomplicated; F17.200 Nicotine dependence, unspecified, uncomplicated
CPT/HCPCS: 87491; 87591; 96372; 99283; 99284; J0696

== ENCOUNTER 2021-07-10 13:16 | Emergency (ER) | payer OTHER, SELFPAY ==
--- NOTE | ~2021-07-10 | NM_ITS ---
EXAMINATION: NUCLEAR MEDICINE TESTICULAR WITH FLOW CLINICAL INFORMATION: Left testicular pain. Rule out torsion. COMPARISON: None TECHNIQUE: Following intravenous administration of 10 mCi of 99m technetium pertechnetate, immediate flow and delayed static images of both testes were obtained. FINDINGS: There is normal symmetric flow seen to both testes. On delayed static images there is normal symmetrical activity seen in both testes. There is no evidence of vascular compromise. NM/NM testicular w flow IMPRESSION: Normal bilateral flow to both testes. Normal delayed static images of testes. There is no suggestion for epididymitis or torsion.
--- NOTE | ~2021-07-10 | US_ITS ---
EXAMINATION: US SCROTUM CLINICAL INFORMATION: Left testicle pain. COMPARISON: None TECHNIQUE: A sonogram of the scrotum was performed assessing salvador-scale appearance and color Doppler flow. Spectral Doppler analysis of the arterial and venous flow were performed in the testes bilaterally. FINDINGS: RIGHT: Right testicle measures 4.2 x 2.1 x 3.7 cm, volume 17 mL. No focal testicular parenchymal lesions are visualized. Spectral Doppler analysis of the arterial and venous flow is normal in the right testis. Right epididymal head is normal in size. No right hydrocele or varicocele is seen. Right epididymal Doppler flow is normal. LEFT: Left testicle measures 3.8 x 2.5 x 3.1 cm, volume 16 mL. No focal testicular parenchymal lesions are visualized. Spectral Doppler analysis of the arterial and venous flow is decreased in the left testis compared to the right side. Left epididymal head is enlarged and heterogeneous. . Left epididymal Doppler flow is increased. There is a small left hydrocele. There is a small left varicocele. There is marked scrotal wall thickening. There is a small left appendix testis. US/US scrotum doppler IMPRESSION: There is decreased flow seen in the left testicle compared to the right. The left epididymis is very enlarged, heterogeneous and hypervascular. There is a small left hydrocele. There is marked left scrotal wall thickening. Differential would include intermittent left testicular torsion with reactive hyperemia of the epididymis and left epididymitis. Nuclear medicine scrotal scan and urology consultation recommended. Findings were communicated to Melida Harley by telephone on 07/10/2021 at 2:54 PM.
--- NOTE | ~2021-07-10 | US_ITS ---
EXAMINATION: US SCROTUM CLINICAL INFORMATION: Left testicle pain. COMPARISON: None TECHNIQUE: A sonogram of the scrotum was performed assessing salvador-scale appearance and color Doppler flow. Spectral Doppler analysis of the arterial and venous flow were performed in the testes bilaterally. FINDINGS: RIGHT: Right testicle measures 4.2 x 2.1 x 3.7 cm, volume 17 mL. No focal testicular parenchymal lesions are visualized. Spectral Doppler analysis of the arterial and venous flow is normal in the right testis. Right epididymal head is normal in size. No right hydrocele or varicocele is seen. Right epididymal Doppler flow is normal. LEFT: Left testicle measures 3.8 x 2.5 x 3.1 cm, volume 16 mL. No focal testicular parenchymal lesions are visualized. Spectral Doppler analysis of the arterial and venous flow is decreased in the left testis compared to the right side. Left epididymal head is enlarged and heterogeneous. . Left epididymal Doppler flow is increased. There is a small left hydrocele. There is a small left varicocele. There is marked scrotal wall thickening. There is a small left appendix testis. US/US scrotum IMPRESSION: There is decreased flow seen in the left testicle compared to the right. The left epididymis is very enlarged, heterogeneous and hypervascular. There is a small left hydrocele. There is marked left scrotal wall thickening. Differential would include intermittent left testicular torsion with reactive hyperemia of the epididymis and left epididymitis. Nuclear medicine scrotal scan and urology consultation recommended. Findings were communicated to Melida Harley by telephone on 07/10/2021 at 2:54 PM.
[2021-07-10 13:47] VITALS: BP 144/76; PULSE 100; RESP 19; TEMP 37.2; O2SAT 99; BMI 27.4
[2021-07-10 14:56] LABS: Appearance Urine CLOUDY; Color Urine YELLOW; Glucose Urine UA 250 MG/DL (NEG); Leukocyte Esterase Urine 1+ (NEG); Nitrite Urine NEG (NEG); Specific Gravity - Urine >= 1.030 (1.005-1.025); UACC Culture Trigger YES; Urine Blood 2+ (NEG); Urine Ketones NEG (NEG); Urine Protein TRACE MG/DL (NEG-TRACE)
--- NOTE | 2021-07-10 14:57 | ED_ITS ---
HPI - Male Genitourinary General Chief complaint: Urogenital-Male <NEHEMIAS Oscar - Last Filed: 07/10/21 17:06> Stated complaint: testicle swelling <NEHEMIAS Oscar Last Filed: 07/10/21 17:06> Time Seen by Provider: 07/10/21 13:51 <NEHEMIAS Oscar Last Filed: 07/10/21 17:06> Source: patient <NEHEMIAS Oscar - Last Filed: 07/10/21 17:06> Mode of arrival: ambulatory <NEHEMIAS Oscar Last Filed: 07/10/21 17:06> Limitations: no limitations <NEHEMIAS Oscar Last Filed: 07/10/21 17:06> History of Present Illness HPI Narrative: This is a 31-year-old male past medical history significant for asthma, hepatitis-C and polysubstance abuse presenting to the emergency department with complaints of left testicular pain X3 days. Patient tells me that this pain started all when he was walking up the stairs he reports that it started as 10/10 severe pain. He tells me that the pain waxes and wanes, at times at the 10/10 other times it is about a 7 or 8. He tells me that when the pain is severe it is associated with nausea however no vomiting. He tells me that he is sexually active with multiple partners, he does have a concern for sexually transmitted infections. Patient tells me he has a history of chlamydia and gonorrhea however they have been treated, this was in his remote history and he does not remember exactly when. He denies dysuria, penile discharge, hematuria, trauma, fevers, chills, vomiting, abdominal pain, chest pain, shortness of breath. I asked him is elevation of the testicle makes the pain better he tells me no, he tells me that the pain is always there. <NEHEMIAS Oscar Last Filed: 07/10/21 17:06> MD Complaint: testicle pain <NEHEMIAS Oscar Last Filed: 07/10/21 17:06> Onset (ago): day(s) (2) <NEHEMIAS Oscar - Last Filed: 07/10/21 17:06> Duration: constant <NEHEMIAS Oscar Last Filed: 07/10/21 17:06> Location: left testicle <NEHEMIAS Oscar - Last Filed: 07/10/21 17:06> Severity: severe <NEHEMIAS Oscar Last Filed: 07/10/21 17:06> Severity scale (1-10): >10 <NEHEMIAS Oscar - Last Filed: 07/10/21 17:06> Quality: aching and stabbing <NEHEMIAS Oscar Last Filed: 07/10/21 17:06> Relieving factors: none <NEHEMIAS Oscar Last Filed: 07/10/21 17:06> Exacerbating factors: none <NEHEMIAS Oscar Last Filed: 07/10/21 17:06> Associated symptoms: Reports denies other symptoms <NEHEMIAS Oscar Last Filed: 07/10/21 17:06> Related Data Home medications: Previous Rx's Medication Instructions Recorded naloxone 4 mg/actuation nasal 4 mg INTRANASAL Q2M PRN #2 ea 07/04/20 spray (Narcan) doxycycline hyclate 100 mg capsule 100 mg PO BID 7 Days #14 cap 04/24/21 doxycycline hyclate 100 mg capsule 100 mg PO BID 14 Days #28 cap 07/10/21 metronidazole 500 mg tablet 500 mg PO BID 10 Days #20 tab 07/10/21 <NEHEMIAS Oscar Last Filed: 07/10/21 17:06> Allergies/Adverse reactions: Allergies Allergy/AdvReac Type Severity Reaction Status Date / Time amoxicillin Allergy Intermediate HIVES Verified 08/18/20 00:27 [AMOXICILLIN] <NEHEMIAS Oscar Last Filed: 07/10/21 17:06> Review of Systems Verdana 4l Review of Systems: Verdana 4d Verdana 4d Constitutional : No Weight loss, No Fever, No Chills, No Fatigue, No Malaise ENT/Mouth : No sore throat, No Rhinorrhea Eyes: No Eye Pain, No Swelling, No Redness Cardiovascular : No Chest Pain, No SOB, No Dyspnea on Exertion, No OrthopneaOrthopnea, No Edema, No Palpitations Respiratory : No Cough, No Sputum, No Wheezing Gastrointestinal : No Nausea, No Vomiting, No Diarrhea, No Constipation, No abdominal Pain, No Hematochezia, No Melena Genitourinary : No Dysuria, No Urinary Frequency, No Hematuria, + left testicular pain Musculoskeletal : No joint pain, No Myalgias, No Joint Swelling Skin : No Skin Lesions, No rash Neuro : No Weakness, No Numbness, No Dizziness, No Headache All other systems reviewed and are negative <NEHEMIAS Oscar - Last Filed: 07/10/21 17:06> Yes all other systems are reviewed and are negative <NEHEMIAS Oscar - Last Filed: 07/10/21 17:06> [facility] Past Medical History Attestation statement: The following information was validated with the patient. <NEHEMIAS Oscar - Last Filed: 07/10/21 17:06> Source: old records reviewed and nursing notes reviewed <NEHEMIAS Oscar - Last Filed: 07/10/21 17:06> Medical History: Medical History Asthma Hep C w/o coma, chronic Substance abuse <NEHEMIAS Oscar - Last Filed: 07/10/21 17:06> Social History Social History: Social History Alcohol intake: current Alcohol intake frequency: 3 or more drinks per day Patient Tobacco Use Status: Current everyday Tobacco user Substance Use Type: Amphetamines, Crack/Cocaine, IV Drugs, Marijuana, Opiates, Painkillers and Prescription Drugs Advance Directives: No Advance Directives Information Provided: Yes <NEHEMIAS Oscar Last Filed: 07/10/21 17:06> Physical Exam Verdana 4l Vital Signs: Verdana 4d Verdana 4d Vital Signs: Verdana 4d Verdana 4Bd Last Vital Signs Verdana 4d Resource Forester New 4d Resource Forester New 4d Temp 99 F 07/10/21 13:47 Resource Forester New 4d Pulse 100 07/10/21 13:47 Resource Forester New 4d Resp 19 07/10/21 13:47 BP 144/76 H 07/10/21 13:47 Pulse Ox 99 07/10/21 13:47 BMI result Body Mass Index 27.4 VSS <NEHEMIAS Oscar - Last Filed: 07/10/21 17:06> Appearance: Alert.? Oriented X3.? No acute distress.? Head: Normocephalic, atraumatic, no step-offs or deformities Eyes: Pupils equal, round and reactive to light.? ENT: Pharynx normal.? Neck: Normal inspection.? Neck supple.? CVS: Normal heart rate and rhythm.? Pulses normal.? Respiratory: No respiratory distress.? Breath sounds normal.? Abdomen: Soft and nontender.? Sensative: Pain and swelling to the left testicle with overlying erythema and calor. Right testicle appears normal, no pain with palpation. Pain to the epididymis to the left. Positive cremasteric reflex on the right negative cre masteric reflex on the left. ( chaperoned by Marcial in nuclear medicine) Skin: Skin warm and dry.? Normal skin color.? Normal skin turgor.? Extremities: No lower extremity edema.? No calf ttp. 5/5 strength to bilateral upper and lower extremities Back: No midline tenderness, no C-spine tenderness, full range of motion, no CVA tenderness bilaterally Neuro: Oriented X 3.? No motor deficit.? No sensory deficit. <NEHEMIAS Oscar - Last Filed: 07/10/21 17:06> Course Reevaluation(s) Reevaluation #1: Decreased flow to the left testicle when compared to the right. Differential at this time includes intermittent torsion or epididymitis. Per Dr. Vela At this a nuclear medicine scrotal exam will be ordered and she recommends reaching out to [facility]. <NEHEMIAS Oscar - Last Filed: 07/10/21 17:06> Time: 14:58 <NEHEMIAS Oscar - Last Filed: 07/10/21 17:06> Reevaluation #2: I discussed patient's history and physical exam with Dr. Morejon, I also reviewed ultrasound with Dr. Morejon who also believes this is likely a severe epididymitis. Based off patient history and physical examination less likely torsion. However an NM testicular with flow study is currently being done. Pending results. <NEHEMIAS Oscar - Last Filed: 07/10/21 17:06> Time: 15:30 <NEHEMIAS Oscar - Last Filed: 07/10/21 17:06> Reevaluation #3: Nuclear med testicular exam shows normal bilateral flow to both testes. There is no suggestion for epididymitis or torsion. However, based off patient history and physical examination physical and history consistent with epididymitis. I will have him follow-up with Dr. Morejon outpatient. Prophylactically treating for gonorrhea, chlamydia and Trichomonas. Comfortable with dc. <NEHEMIAS Oscar - Last Filed: 07/10/21 17:06> Time: 16:44 <NEHEMIAS Oscar - Last Filed: 07/10/21 17:06> Additional Reevaluation(s): Leukocytosis, likely secondary to epididymitis/STDs. <NEHEMIAS Oscar - Last Filed: 07/10/21 17:06> MDM - Male Genitourinary MDM Narrative Medical decision making narrative: 1502 31 yo m pmhx hep c, asthma, polysubstance abuse presents to ED w/ concerns of L. testiclar pain X2 days, non radiating. Patient does report multiple sex partners, unprotected sex and remote history of gonorrhea and chlamydia. He tells me that these were treated however. PE significant for pain and swelling to the left testicle with overlying erythema and calor. Right testicle appears normal, no pain with palpation. Pain to the epididymis to the left. Positive cremasteric reflex on the right negative cremasteric reflex on the left. History and physical examination consistent with epididymitis other differentials include testicular torsion. Plan- US. I plan on prophylactically treating this patient for gonorrhea, chlamydia and Trichomonas. <NEHEMIAS Oscar - Last Filed: 07/10/21 17:06> Medical Records Attestation: I reviewed the patient's medical records. <NEHEMIAS Oscar Last Filed: 07/10/21 17:06> Lab Data Attestation: I reviewed the patient's lab results. <NEHEMIAS Oscar - Last Filed: 07/10/21 17:06> Result diagrams: : 07/10/21 16:49 07/10/21 16:49 <NEHEMIAS Oscar - Last Filed: 07/10/21 17:06> Labs: Lab Results 07/10/21 07/10/21 07/10/21 Range/Units 14:49 16:44 16:49 WBC 12.4 H (4.8-10.8) X10*3/uL RBC 4.18 L (4.60-5.80) X10*6/uL Hgb 12.1 L (14.0-18.0) g/dl Hct 35.1 L (42.0-52.0) % MCV 84.0 (80.0-98.0) fL MCH 28.9 (27.0-33.0) pg MCHC 34.5 (31.0-36.0) g/dl RDW 12.8 (11.0-16.0) % Plt Count 281 (160-400) X10*3/uL MPV 9.3 L (9.4-12.4) fL Immature Gran % (Auto) 0.3 (0.0-0.4) % Neut % (Auto) 78.8 H (45-73) % Lymph % (Auto) 15.7 L (20-40) % [place] % (Auto) 4.7 (2-11) % Eos % (Auto) 0.3 (0-4) % Baso % (Auto) 0.2 (0-2) % Lymph # (Auto) 2.0 (1.2-4.9) X10*3/uL [place] # (Auto) 0.6 (0.1-1.2) X10*3/uL Eos # (Auto) 0.0 (0.0-0.4) X10*3/uL Baso # (Auto) 0.0 (0.0-0.2) X10*3/uL Abs Immat Gran (auto) 0.04 H (0.00-0.03) X10*3/uL Absolute Neuts (auto) 9.8 H (2.0-8.3) x10*3/uL Absolute Nucleated RBC 0.000 (0.0-0.012) X10*3/uL Nucleated RBC % (auto) 0.0 (0.0-0.2) /100WBC Sodium (135-145) mmol/L Potassium (3.3-5.1) mmol/L Chloride (96-108) mmol/L Carbon Dioxide (22-29) mmol/L Anion Gap (12-20) BUN (9-16) mg/dL Creatinine (0.5-1.4) mg/dL Estim Creat Clear Calc Estimated GFR Random Glucose (60-115) mg/dL Calcium (8.4-10.2) mg/dL Total Bilirubin (0.0-1.0) mg/dL AST (5-37) U/L ALT (0-40) U/L Alkaline Phosphatase (39-117) U/L Total Protein (6.5-8.0) g/dL Albumin (3.5-5.0) g/dL Urine Color YELLOW Urine Appearance CLOUDY Urine pH 6.0 (5.0-8.0) Ur Specific [place] >= 1.030 H (1.005-1.025) Urine Protein TRACE (NEG-TRACE) MG/DL Urine Glucose (UA) 250 H (NEG) MG/DL Urine Ketones NEG (NEG) MG/DL Urine Blood 2+ H (NEG) Urine Nitrite NEG (NEG) Ur Leukocyte Esterase 1+ H (NEG) Urine RBC 5-9 H (0) /HPF Urine WBC 76-150 H (0-4) /HPF Urine WBC Clumps Ur Squamous Epith TRACE /LPF Cells Ur Renal Epithelial Cell [place] Biurate Crystals Calcium Carbonate Cryst Calcium Phosphate Cryst Calcium Oxalate Crystal Leucine Crystals Cystine Crystals Uric Acid Crystals Triple Phos Crystals Talc Crystals Tyrosine Crystals Other Crystals Amorphous Sediment Urine Bacteria NONE /LPF Epithelial Casts Fatty Casts Hyaline Casts Granular Casts Waxy Casts RBC Casts WBC Casts Other Casts Urine Mucus Urine Trichomonas Urine Yeast Urine Sperm Ur Oval Fat Bodies COVID-19 (SABRA) Negative (Negative) COVID-19 Clin Com See Note 07/10/21 07/10/21 Range/Units 16:49 16:52 WBC (4.8-10.8) X10*3/uL RBC (4.60-5.80) X10*6/uL Hgb (14.0-18.0) g/dl Hct (42.0-52.0) % MCV (80.0-98.0) fL MCH (27.0-33.0) pg MCHC (31.0-36.0) g/dl RDW (11.0-16.0) % Plt Count (160-400) X10*3/uL MPV (9.4-12.4) fL Immature Gran % (Auto) (0.0-0.4) % Neut % (Auto) (45-73) % Lymph % (Auto) (20-40) % [place] % (Auto) (2-11) % Eos % (Auto) (0-4) % Baso % (Auto) (0-2) % Lymph # (Auto) (1.2-4.9) X10*3/uL [place] # (Auto) (0.1-1.2) X10*3/uL Eos # (Auto) (0.0-0.4) X10*3/uL Baso # (Auto) (0.0-0.2) X10*3/uL Abs Immat Gran (auto) (0.00-0.03) X10*3/uL Absolute Neuts (auto) (2.0-8.3) x10*3/uL Absolute Nucleated RBC (0.0-0.012) X10*3/uL Nucleated RBC % (auto) (0.0-0.2) /100WBC Sodium 137 (135-145) mmol/L Potassium 4.1 (3.3-5.1) mmol/L Chloride 101 (96-108) mmol/L Carbon Dioxide 29 (22-29) mmol/L Anion Gap 11 L (12-20) BUN 13 (9-16) mg/dL Creatinine 1.10 (0.5-1.4) mg/dL Estim Creat Clear Calc 95.1 Estimated GFR > 60 Random Glucose 143 H (60-115) mg/dL Calcium 9.4 (8.4-10.2) mg/dL Total Bilirubin 0.6 (0.0-1.0) mg/dL AST 37 (5-37) U/L ALT 22 (0-40) U/L Alkaline Phosphatase 88 (39-117) U/L Total Protein 8.0 (6.5-8.0) g/dL Albumin 3.8 (3.5-5.0) g/dL Urine Color Cancelled Urine Appearance Cancelled Urine pH Cancelled (5.0-8.0) Ur Specific [place] Cancelled (1.005-1.025) Urine Protein Cancelled (NEG-TRACE) MG/DL Urine Glucose (UA) Cancelled (NEG) MG/DL Urine Ketones Cancelled (NEG) MG/DL Urine Blood Cancelled (NEG) Urine Nitrite Cancelled (NEG) Ur Leukocyte Esterase Cancelled (NEG) Urine RBC Cancelled (0) /HPF Urine WBC Cancelled (0-4) /HPF Urine WBC Clumps Cancelled Ur Squamous Epith Cells Cancelled /LPF Ur Renal Epithelial Cell Cancelled [place] Biurate Crystals Cancelled Calcium Carbonate Cryst Cancelled Calcium Phosphate Cryst Cancelled Calcium Oxalate Crystal Cancelled Leucine Crystals Cancelled Cystine Crystals Cancelled Uric Acid Crystals Cancelled Triple Phos Crystals Cancelled Talc Crystals Cancelled Tyrosine Crystals Cancelled Other Crystals Cancelled Amorphous Sediment Cancelled Urine Bacteria Cancelled /LPF Epithelial Casts Cancelled Fatty Casts Cancelled Hyaline Casts Cancelled Granular Casts Cancelled Waxy Casts Cancelled RBC Casts Cancelled WBC Casts Cancelled Other Casts Cancelled Urine Mucus Cancelled Urine Trichomonas Cancelled Urine Yeast Cancelled Urine Sperm Cancelled Ur Oval Fat Bodies Cancelled COVID-19 (SABRA) (Negative) COVID-19 Clin Com <NEHEMIAS Oscar - Last Filed: 07/10/21 17:06> Imaging Data NM testicular scan : Attestation: I personally reviewed and interpreted this imaging study as follows: <NEHEMIAS Oscar Last Filed: 07/10/21 17:06> Radiologist's impression: FINDINGS: There is normal symmetric flow seen to both testes. On delayed static images there is normal symmetrical activity seen in both testes. There is no evidence of vascular compromise.? NM/NM testicular w flow IMPRESSION: Normal bilateral flow to both testes. ? Normal delayed static images of testes. There is no suggestion for epididymitis or torsion.? <NEHEMIAS Oscar Last Filed: 07/10/21 17:06> Critical Care Time Critical Care Time Critical Care Time: Yes <NEHEMIAS Oscar - Last Filed: 07/10/21 17:06> Total Critical Care Time: 35 <NEHEMIAS Oscar Last Filed: 07/10/21 17:06> Attestation: I attest to this time spent taking care of the patient obtaining history, physical exam, reviewing laboratory studies, reviewing imaging, speaking to specialists. <NEHEMIAS Oscar Last Filed: 07/10/21 17:06> Discharge Plan Discharge Clinical Impression: Epididymitis (Ruled Out): Acute retention of urine <NEHEMIAS Oscar Last Filed: 07/10/21 17:06> Patient Disposition: Home, Self-Care <NEHEMIAS Oscar Last Filed: 07/10/21 17:06> Instructions: Epididymitis (ED) <NEHEMIAS Oscar Last Filed: 07/10/21 17:06> Additional Instructions: Take your medications as prescribed. If you were prescribed antibiotics today, it is important that you take your medication to their entirety, do not skip any doses, do not finish them early. Follow-up with your primary care provider this week. Return to the emergency department with new or worsening symptoms. Such as fevers, chills, nausea, vomiting, chest pain, shortness of breath, worsening inflammation, worsening pain. In case of emergency call 911 <NEHEMIAS Oscar Last Filed: 07/10/21 17:06> Prescriptions: New doxycycline hyclate 100 mg capsule 100 mg PO BID 14 Days Qty: 28 0RF metronidazole 500 mg tablet 500 mg PO BID 10 Days Qty: 20 0RF No Action Narcan 4 mg/actuation spray,non-aerosol 4 mg intranasal Q2M PRN (Reason: opioid overdose) Qty: 2 0RF Rx Instructions: spray 1 dose into ONE nostril; alternate nostrils w each dose until help arrives doxycycline hyclate 100 mg capsule 100 mg PO BID 7 Days Qty: 14 0RF <NEHEMIAS Oscar Last Filed: 07/10/21 17:06> Referrals: Raji Morejon MD [Physician] - 2 days <NEHEMIAS Oscar Last Filed: 07/10/21 17:06> Interventions: ED Discharge Assessment Last Done: 07/10/21 17:20 <NEHEMIAS Oscar - Last Filed: 07/10/21 17:06> Discharge Date/Time: 07/10/21 17:23 <NEHEMIAS Oscar - Last Filed: 07/10/21 17:06>
[2021-07-10 15:06] LABS: Squamous Epithelial Cell Urine TRACE /LPF
[2021-07-10] MEDS: metroNIDAZOLE 500 MG TABLET PO (16:15)
[2021-07-10] MEDS: diphenhydrAMINE HCL 25 MG TABLET 50 MG PO (16:15)
[2021-07-10] MEDS: cefTRIAXone sodium 500 MG, Lidocaine HCl 1 % MPF 1 ML IM (16:16)
[2021-07-10 16:59] LABS: MANUAL DIFF FLAG NO
[2021-07-10 17:01] LABS: Basophils Percent Auto 0.2 % (0-2); Eosinophils Percent Auto 0.3 % (0-4); Hematocrit 35.1 % (42.0-52.0); Hemoglobin 12.1 g/dl (14.0-18.0); Imm Gran Abs Auto 0.04 X10*3/uL (0.00-0.03); Imm Gran Pct Auto 0.3 % (0.0-0.4); Lymphocytes Percent Auto 15.7 % (20-40); Mean Corpuscular HGB Conc 34.5 g/dl (31.0-36.0); Mean Corpuscular Hemoglobin 28.9 pg (27.0-33.0); Mean Platelet Volume 9.3 fL (9.4-12.4); Monocytes Absolute Auto 0.6 X10*3/uL (0.1-1.2); Monocytes Percent Auto 4.7 % (2-11); Neutrophils Absolute Auto 9.8 x10*3/uL (2.0-8.3); Neutrophils Percent Auto 78.8 % (45-73); Platelet Count 281 X10*3/uL (160-400); Red Blood Count 4.18 X10*6/uL (4.60-5.80); Red Cell Distribution Width 12.8 % (11.0-16.0); White Blood Count 12.4 X10*3/uL (4.8-10.8)
[2021-07-10 17:15] LABS: COVID-19 Test Negative (Negative); IDNOW Serial# 9DD0AD1C
[2021-07-10 17:17] LABS: Alanine Aminotransferase 22 U/L (0-40); Albumin Level 3.8 g/dL (3.5-5.0); Alkaline Phosphatase 88 U/L (39-117); Anion Gap 11 (12-20); Aspartate Amino Transferase 37 U/L (5-37); Bilirubin Total 0.6 mg/dL (0.0-1.0); Blood Urea Nitrogen 13 mg/dL (9-16); Calcium 9.4 mg/dL (8.4-10.2); Carbon Dioxide 29 mmol/L (22-29); Chloride 101 mmol/L (96-108); Creatinine Clr Calc Pharmacy 95.1; Estimated Glomerular Filt Rate > 60; Glucose Random 143 mg/dL (60-115); Potassium 4.1 mmol/L (3.3-5.1); Sodium 137 mmol/L (135-145)
[2021-07-11 09:17] LABS: CT PCR NOT DETECTED (Not Detect.); NG PCR DETECTED (Not Detect.)
== END 2021-07-10 17:23 | disposition home or self-care (01) ==
PROVIDERS: Physician Assistant; Emergency Provider Emergency Medicine
DX: N45.1 Epididymitis (principal); N50.89 Other specified disorders of the male genital organs; F11.90 Opioid use, unspecified, uncomplicated; F14.90 Cocaine use, unspecified, uncomplicated; F12.90 Cannabis use, unspecified, uncomplicated; Z20.822 Contact with and (suspected) exposure to COVID-19; Z79.899 Other long term (current) drug therapy
CPT/HCPCS: 76870; 78761; 80053; 81001; 85025; 87086; 87491; 87591; 87635; 93975; 96372; 99284; 99285; 99291; A9512; J0696; Q0163

== ENCOUNTER 2021-08-23 15:40 | Emergency (ER) | payer OTHER, SELFPAY ==
--- NOTE | 2021-08-23 15:51 | ED_ITS ---
HPI - General Adult General Stated complaint: groin pain Time Seen by Provider: 08/23/21 15:45 Source: patient and EMS Mode of arrival: EMS Limitations: altered mental status and other (Patient appears to be under the influence of drugs.) History of Present Illness HPI narrative: This is a 31-year-old male presenting to the emergency department via ambulance past medical history of opiate use disorder, epididymitis, urethritis, hepatitis-C, asthma, polysubstance abuse presenting to the emergency department with complaints of left-sided scrotal pain that started suddenly about an hour ago. When I asked him to explain how it feels he says ?my balls hurt ?. Patient is not able to answer many questions, he appears to be under the influence of drugs. Dozing off during my examination. Time his pain is a 10/10 without radiation. He also tells me he has white discharge. History taking is limited due to patient's mentation. I asked patient if he fell he says no. He tells me I do not know it is going on ?I have not had sex in a few days. . He is telling me that he just wants medication and he does not want exam,labs or medicines. Onset (ago): unknown Radiation: non-radiation Severity: severe Severity scale (1-10): >10 Quality: constant Pain Consistency: constant Relieving factors: none Exacerbating factors: none Associated symptoms: denies other symptoms Treatments prior to arrival: none Related Data Previous Rx's Medication Instructions Recorded naloxone 4 mg/actuation nasal 4 mg INTRANASAL Q2M PRN #2 ea 07/04/20 spray (Narcan) doxycycline hyclate 100 mg capsule 100 mg PO BID 7 Days #14 cap 04/24/21 doxycycline hyclate 100 mg capsule 100 mg PO BID 14 Days #28 cap 07/10/21 metronidazole 500 mg tablet 500 mg PO BID 10 Days #20 tab 07/10/21 Allergies Allergy/AdvReac Type Severity Reaction Status Date / Time amoxicillin [AMOXICILLIN] Allergy Intermediate HIVES Verified 08/18/20 00:27 Review of Systems Review of Systems: Yes Unobtainable due to mental status PMFSH Past Medical History Attestation statement: The following information was validated with the patient. Source: old records reviewed and nursing notes reviewed Medical History Asthma Hep C w/o coma, chronic Substance abuse Social History Social History Alcohol intake: current Alcohol intake frequency: 3 or more drinks per day Patient Tobacco Use Status: Current everyday Tobacco user Substance Use Type: Amphetamines, Crack/Cocaine, IV Drugs, Marijuana, Opiates, Painkillers and Prescription Drugs Physical Exam ED Vital Signs: Initially upon exam his vital signs are stable for EMS however when he arrived he had and respiratory rate of 8. Tried to give Narcan patient eloped. Appearance: Alert.? Oriented X3.? No acute distress.? Patient is dozing off during my examination. Appears to be under the influence of drugs. Slurring his words. Head: Normocephalic, atraumatic, no step-offs or deformities Eyes: Pupils equal, round and reactive to light.? Bilateral pupils pinpoint. ENT: Pharynx normal.? Neck: Normal inspection.? Neck supple.? CVS: Normal heart rate and rhythm.? Pulses normal.? Respiratory: No respiratory distress.? Breath sounds normal.? Sensative:refused Abdomen: Soft and nontender.? Skin: Skin warm and dry.? Normal skin color.? Normal skin turgor.? Extremities: No lower extremity edema.? No calf ttp. 5/5 strength to bilateral upper and lower extremities Neuro: Oriented X 3.? No motor deficit.? No sensory deficit. CN 2-12 intact Course Reevaluation(s) Reevaluation #1: Patient upset when he had to get changed over, he refused to get changed over. Refused to sensitive exam. Refusing ultrasound. Refusing labs. Refusing urine. Patient upset and stating I am going to [facility] . Educated patient that this could be life-threatening, gave him potential risks of this goes untreated. Patient tells me he does not care and he is leaving. Patient eloped from the emergency department. Time: 16:[address] Medical Decision [address] [facility] Narrative Medical decision making narrative: [birth year]31 31 yo m pmhx hep c, asthma, polysubstance presents with a cc of my balls hurt appears to be under the influence of drugs. PE patient appears to be slurring his words the pillars to be under the influence of drugs. Bilateral pinpoint pupils. Regular rate and rhythm. Lungs clear. Respiratory rate diminished. Plan at this time is to give Narcan as patient is slow to respond, low respiratory rate He is not SI or HI. Plan at this time is testicular ultrasound,labs, imaging Medical Records Medical records reviewed: Yes I reviewed the patient's medical records. Lab Data Lab results reviewed: Yes I reviewed the patient's lab results. Critical Care Time Critical Care Time Critical Care Time: No Discharge Plan Discharge Clinical Impression: Pain in scrotum Patient Disposition: Elopement Prescriptions: No Action Narcan 4 mg/actuation spray,non-aerosol 4 mg intranasal Q2M PRN (Reason: opioid overdose) Qty: 2 0RF Rx Instructions: spray 1 dose into ONE nostril; alternate nostrils w each dose until help arrives doxycycline hyclate 100 mg capsule 100 mg PO BID 7 Days Qty: 14 0RF doxycycline hyclate 100 mg capsule 100 mg PO BID 14 Days Qty: 28 0RF metronidazole 500 mg tablet 500 mg PO BID 10 Days Qty: 20 0RF
[2021-08-23 16:06] VITALS: PULSE 102; RESP 12; TEMP 37; O2SAT 98; BMI 25.0
== END 2021-08-23 16:20 | disposition left against medical advice (07) ==
LOC: HO.ED 16:11
PROVIDERS: Emergency Provider Emergency Medicine Emergency Medical Services
DX: N50.812 Left testicular pain (principal); B19.20 Unspecified viral hepatitis C without hepatic coma; F19.10 Other psychoactive substance abuse, uncomplicated; J45.909 Unspecified asthma, uncomplicated
CPT/HCPCS: 99282; 99283

== ENCOUNTER 2022-01-25 08:43 | Observation (INO) | payer OTHER, SELFPAY ==
--- NOTE | ~2022-01-25 | XR_ITS ---
EXAMINATION:XR foot LT min 3V, XR foot RT min 3V VIEWS ACQUIRED: Frontal lateral and oblique each foot. Total 6 views. CLINICAL INFORMATION: Reason for Exam redness swelling. osteo? COMPARISON: None available at the time of this dictation. FINDINGS soft tissue swelling dorsal aspect of the right foot at the level of the metatarsals, no subcutaneous emphysema.: There is no evidence of acute fracture or dislocation. Intertarsal, tarsometatarsal, metatarsophalangeal and interphalangeal joints are intact. Surrounding soft tissues is normal. , No osteolytic changes to suggest osteomyelitis at this time. XR/XR foot RT min 3V IMPRESSION: There is soft tissue swelling dorsal aspect of the right foot at the level of the metatarsals. No emphysema. No radiographic changes to suggest osteomyelitis at this time.
--- NOTE | ~2022-01-25 | US_ITS ---
EXAMINATION: US VENOUS ULTRASOUND WITH DOPPLER LOWER EXTREMITY, BILATERAL CLINICAL INFORMATION: Bilateral feet swelling. Question DVT COMPARISON: None TECHNIQUE: Ultrasound of the deep veins is performed from the hip to the calf with compression sonography and color and pulse Doppler assessment. Spectral analysis with color-flow imaging is performed. FINDINGS: RIGHT: There is normal venous compression and respiratory variation and augmented flow. The visualized common femoral vein, superficial femoral vein, profunda femoral vein, popliteal vein, and the trifurcation region shows no evidence of deep venous thrombosis. There is no significant popliteal fossa cyst. LEFT: There is normal venous compression and respiratory variation and augmented flow. The visualized common femoral vein, superficial femoral vein, profunda femoral vein, popliteal vein, and the trifurcation region shows no evidence of deep venous thrombosis. There is no significant popliteal fossa cyst. If the patient's symptoms persist, followup ultrasound in 5 days 7 days might be of value to exclude proximal propagation from a non-visualized calf vein. US/US venous duplex LE BI IMPRESSION: No DVT demonstrated in the bilateral lower extremity.
--- NOTE | ~2022-01-25 | XR_ITS ---
EXAMINATION:XR foot LT min 3V, XR foot RT min 3V VIEWS ACQUIRED: Frontal lateral and oblique each foot. Total 6 views. CLINICAL INFORMATION: Reason for Exam redness swelling. osteo? COMPARISON: None available at the time of this dictation. FINDINGS soft tissue swelling dorsal aspect of the right foot at the level of the metatarsals, no subcutaneous emphysema.: There is no evidence of acute fracture or dislocation. Intertarsal, tarsometatarsal, metatarsophalangeal and interphalangeal joints are intact. Surrounding soft tissues is normal. , No osteolytic changes to suggest osteomyelitis at this time. XR/XR foot LT min 3V IMPRESSION: There is soft tissue swelling dorsal aspect of the right foot at the level of the metatarsals. No emphysema. No radiographic changes to suggest osteomyelitis at this time.
[2022-01-25 09:05] VITALS: BP 131/68; PULSE 93; RESP 16; TEMP 37.1; O2SAT 95; BMI 27.4
--- NOTE | 2022-01-25 09:15 | PC.NURSE ---
pt has a knife on him, was taken by security for safe keepings while pt in the ed
--- NOTE | 2022-01-25 10:08 | ED.LOWEXIN ---
HPI - Extremity Injury (Lower) General Chief Complaint: Extremity Injury, Lower Stated Complaint: R foot swollen Time Seen by Provider: 01/25/22 09:49 Source: patient Mode of arrival: ambulatory Limitations: no limitations History of Present Illness HPI Narrative: 31 yold presents to the ED for right foot swelling and redness and now left foot starting to become red and swelling. Patient admits to being an IV drug user but denies shooting any drugs into his feet. Patient denies any fever chills chest pain or shortness of breath. Related Data Previous Rx's Medication Instructions Recorded naloxone 4 mg/actuation nasal 4 mg intranasal Q2M PRN opioid 07/04/20 spray (Narcan) overdose #2 ea doxycycline hyclate 100 mg capsule 100 mg PO BID 7 days #14 caps 04/24/21 doxycycline hyclate 100 mg capsule 100 mg PO BID 14 days #28 caps 07/10/21 metronidazole 500 mg tablet 500 mg PO BID 10 days #20 tabs 07/10/21 Allergies Allergy/AdvReac Type Severity Reaction Status Date / Time amoxicillin [AMOXICILLIN] Allergy Intermediate HIVES Verified 08/18/20 00:27 Review of Systems Review of Systems: Bilateral feet swelling Yes all other systems are reviewed and are negative [facility] Past Medical History Medical History Asthma Hep C w/o coma, chronic Substance abuse Social History Social History Alcohol intake: never Patient Tobacco Use Status: Current everyday Tobacco user Smoked in Last 30 Days: Yes Substance Use Type: Crack/Cocaine and Heroin Substance Use Frequency: Chronic Longstanding Substance Use Frequency Other:: Daily Last Used Substance: Just Prior to Admission Advance Directives: No Advance Directives Information Provided: No Physical Exam Vital Signs: Vital Signs: Last Vital Signs Temp 98.7 F 01/25/22 09:05 Pulse 80 01/25/22 13:42 Resp 22 H 01/25/22 13:42 BP 114/57 L 01/25/22 13:42 Pulse Ox 99 01/25/22 13:42 O2 Del Method 01/25/22 13:42 BMI result Body Mass Index 27.4 Const: General: cooperative, healthy appearing, comfortable, no acute distress, well developed, alert, awake and Physically active Orientation/consciousness: oriented to person, oriented to place, oriented to time and patient oriented x3 HEENT: Head: Yes normal to inspection, Yes No palpable skull fracture present, Yes normocephalic, Yes atraumatic and No abrasion Eyes: General: appearance normal, both eyes and all related structures Neck: Neck: Yes normal visual inspection, Yes full ROM, Yes no lymphadenopathy, Yes no meningeal signs, Yes trachea midline, Yes supple, No anterior neck swelling and No tender Chest: Chest palpation & inspection: normal inspection of the chest and normal palpation of entire chest wall Resp: Effort & Inspection: normal respiratory effort and able to speak in complete sentences Auscultation: clear to auscultation bilaterally Cardio: Jugular venous distension: no JVD Heart sounds: S1 normal heart sound present and S2 normal heart sound present GI: Inspection: Yes normal to inspection and No abdominal wall ecchymosis Palpation (GI): Soft to palpation, not firm, nontender, no guarding and not rigid : General: No CVA tenderness and Yes no CVA tenderness Back/Spine/Pelvis: Back: no CVA tenderness, No CVA tenderness and No back tenderness Skin: General skin exam: no rashes or lesions noted and elasticity normal Neuro: General: oriented to person, oriented to place, oriented to time, patient oriented x3, gait normal, Normal light touch and pain sensation, no meningeal signs, no focal motor deficits and CN's II-XI intact bilaterally Extrem: Other: Positive for left foot swelling and redness. Negative for any leg or calf swelling. Modal/nose/vascular exam of left lowerxtremity intact. Positive for right foot significantly swollen and red with tenderness on palpation and warm. Negative for leg and calf swelling. Motor/neurovascular exam right lower extremity intact Psych: Appearance: grossly normal, well kempt and not disheveled Course Course Course Narrative: X-ray of lower extremities labs fluid ordered. Reevaluation(s) Reevaluation #1: X-RAY NEGATIVE FOR OSTEOMYELITIS BUT ESR CRP ELEVATED WITH BILATERAL CELLULITIS OF LOWER EXTREMITY AN IV DRUG USER RECOMMEND PATIENT BE ADMITTED TO HOSPITALIST SERVICE. pATIENT HIGH RISK FOR mrsa. ULTRASOUND NEGATIVE FOR DVT. VITAL SIGNS STABLE. HOSPITALIST AGREEABLE WITH PLAN. Time: 13:47 MDM - Extremity Injury (Lower) MDM Narrative Medical decision making narrative: BILATERAL FOOT CELLULITIS Lab Data Result diagrams: 01/25/22 10:27 01/25/22 10:27 Labs: Lab Results 01/25/22 01/25/22 01/25/22 Range/Units 10:27 10:27 10:27 WBC 10.5 (4.8-10.8) X10*3/uL RBC 3.58 L (4.60-5.80) X10*6/uL Hgb 10.8 L (14.0-18.0) g/dl Hct 29.0 L (42.0-52.0) % MCV 81.0 (80.0-98.0) fL MCH 30.2 (27.0-33.0) pg MCHC 37.2 H (31.0-36.0) g/dl RDW 12.2 (11.0-16.0) % Plt Count 156 L D (160-400) X10*3/uL MPV 10.6 (9.4-12.4) fL Immature Gran % (Auto) 0.2 (0.0-0.4) % Neut % (Auto) 62.2 (45-73) % Lymph % (Auto) 26.5 (20-40) % [place] % (Auto) 10.6 (2-11) % Eos % (Auto) 0.2 (0-4) % Baso % (Auto) 0.3 (0-2) % Lymph # (Auto) 2.8 (1.2-4.9) X10*3/uL [place] # (Auto) 1.1 (0.1-1.2) X10*3/uL Eos # (Auto) 0.0 (0.0-0.4) X10*3/uL Baso # (Auto) 0.0 (0.0-0.2) X10*3/uL Abs Immat Gran (auto) 0.02 (0.00-0.03) X10*3/uL Absolute Neuts (auto) 6.6 (2.0-8.3) x10*3/uL Absolute Nucleated RBC 0.000 (0.0-0.012) X10*3/uL Nucleated RBC % (auto) 0.0 (0.0-0.2) /100WBC ESR 34 H (0-15) MM/HR PT 14.0 H (10.0-13.1) SEC INR 1.2 H (0.9-1.1) APTT 29.5 (26.0-36.4) SEC Sodium (135-145) mmol/L Potassium (3.3-5.1) mmol/L Chloride (96-108) mmol/L Carbon Dioxide (22-29) mmol/L Anion Gap (12-20) BUN (9-16) mg/dL Creatinine (0.5-1.4) mg/dL Estim Creat Clear Calc Estimated GFR Random Glucose (60-115) mg/dL Lactic Acid (0.5-2.0) mmol/L Calcium (8.4-10.2) mg/dL Total Bilirubin (0.0-1.0) mg/dL AST (5-37) U/L ALT (0-40) U/L Alkaline Phosphatase (39-117) U/L C-Reactive Protein (< or = 0.50) mg/dL Total Protein (6.5-8.0) g/dL Albumin (3.5-5.0) g/dL COVID-19 (SABRA) (Negative) COVID-19 Clin Com 01/25/22 01/25/22 01/25/22 Range/Units 10:27 10:27 10:27 WBC (4.8-10.8) X10*3/uL RBC (4.60-5.80) X10*6/uL Hgb (14.0-18.0) g/dl Hct (42.0-52.0) % MCV (80.0-98.0) fL MCH (27.0-33.0) pg MCHC (31.0-36.0) g/dl RDW (11.0-16.0) % Plt Count (160-400) X10*3/uL MPV (9.4-12.4) fL Immature Gran % (Auto) (0.0-0.4) % Neut % (Auto) (45-73) % Lymph % (Auto) (20-40) % [place] % (Auto) (2-11) % Eos % (Auto) (0-4) % Baso % (Auto) (0-2) % Lymph # (Auto) (1.2-4.9) X10*3/uL [place] # (Auto) (0.1-1.2) X10*3/uL Eos # (Auto) (0.0-0.4) X10*3/uL Baso # (Auto) (0.0-0.2) X10*3/uL Abs Immat Gran (auto) (0.00-0.03) X10*3/uL Absolute Neuts (auto) (2.0-8.3) x10*3/uL Absolute Nucleated RBC (0.0-0.012) X10*3/uL Nucleated RBC % (auto) (0.0-0.2) /100WBC ESR (0-15) MM/HR PT (10.0-13.1) SEC INR (0.9-1.1) APTT (26.0-36.4) SEC Sodium 130 L (135-145) mmol/L Potassium 3.4 (3.3-5.1) mmol/L Chloride 92 L (96-108) mmol/L Carbon Dioxide 29 (22-29) mmol/L Anion Gap 12 (12-20) BUN 14 (9-16) mg/dL Creatinine 0.97 (0.5-1.4) mg/dL Estim Creat Clear Calc 107.8 Estimated GFR > 60 Random Glucose 152 H (60-115) mg/dL Lactic Acid 0.8 (0.5-2.0) mmol/L Calcium 8.7 D (8.4-10.2) mg/dL Total Bilirubin 1.2 H (0.0-1.0) mg/dL AST 63 H (5-37) U/L ALT 48 H (0-40) U/L Alkaline Phosphatase 69 D (39-117) U/L C-Reactive Protein 10.09 H (< or = 0.50) mg/dL Total Protein 7.1 (6.5-8.0) g/dL Albumin 4.0 (3.5-5.0) g/dL COVID-19 (SABRA) Negative (Negative) COVID-19 Clin Com See Note Discharge Plan Discharge Clinical Impression: Cellulitis of both feet Patient Disposition: Admitted As Inpatient
[2022-01-25 10:27] VITALS: BP 125/53; PULSE 82; RESP 15; O2SAT 99
--- NOTE | 2022-01-25 10:32 | PC.NURSE ---
Patient presents for redness and swelling to right foot, non-pitting edema noted with errythema to entire foot, extending to ankle. Patient used heroin and cocaine prior to arrival. Patient AAOx4. Restless. Intermittent pain in right foot when bumped.
[2022-01-25 10:33] LABS: MANUAL DIFF FLAG NO
[2022-01-25 10:34] LABS: Basophils Percent Auto 0.3 % (0-2); Eosinophils Percent Auto 0.2 % (0-4); Hemoglobin 10.8 g/dl (14.0-18.0); Imm Gran Abs Auto 0.02 X10*3/uL (0.00-0.03); Imm Gran Pct Auto 0.2 % (0.0-0.4); Lymphocytes Absolute Auto 2.8 X10*3/uL (1.2-4.9); Lymphocytes Percent Auto 26.5 % (20-40); Mean Corpuscular HGB Conc 37.2 g/dl (31.0-36.0); Mean Corpuscular Hemoglobin 30.2 pg (27.0-33.0); Mean Platelet Volume 10.6 fL (9.4-12.4); Monocytes Absolute Auto 1.1 X10*3/uL (0.1-1.2); Monocytes Percent Auto 10.6 % (2-11); Neutrophils Absolute Auto 6.6 x10*3/uL (2.0-8.3); Neutrophils Percent Auto 62.2 % (45-73); Platelet Count 156 X10*3/uL (160-400); Red Blood Count 3.58 X10*6/uL (4.60-5.80); Red Cell Distribution Width 12.2 % (11.0-16.0); White Blood Count 10.5 X10*3/uL (4.8-10.8)
[2022-01-25] MEDS: 0.9 % Sodium Chloride 1,000 ML 999 ML IV (10:35)
[2022-01-25 10:40] LABS: INTERNATIONAL NORM RATIO 1.2 (0.9-1.1)
[2022-01-25 10:43] LABS: Partial Thromboplastin Time 29.5 SEC (26.0-36.4)
[2022-01-25 10:53] LABS: Alanine Aminotransferase 48 U/L (0-40); Alkaline Phosphatase 69 U/L (39-117); Anion Gap 12 (12-20); Aspartate Amino Transferase 63 U/L (5-37); Bilirubin Total 1.2 mg/dL (0.0-1.0); Blood Urea Nitrogen 14 mg/dL (9-16); C Reactive Protein 10.09 mg/dL (< or = 0.50); Calcium 8.7 mg/dL (8.4-10.2); Carbon Dioxide 29 mmol/L (22-29); Chloride 92 mmol/L (96-108); Creatinine Clr Calc Pharmacy 107.8; Estimated Glomerular Filt Rate > 60; Glucose Random 152 mg/dL (60-115); Potassium 3.4 mmol/L (3.3-5.1); Sodium 130 mmol/L (135-145); Total Protein 7.1 g/dL (6.5-8.0)
[2022-01-25 10:59] LABS: Lactic Acid 0.8 mmol/L (0.5-2.0)
[2022-01-25 11:04] LABS: COVID-19 Test Negative (Negative)
[2022-01-25] MEDS: cefTRIAXone sodium 1 GM in 0.9 % Sodium Chloride 50 ML IV (11:04)
--- NOTE | 2022-01-25 11:06 | PC.NURSE ---
Patient resting comfortably at this time. US at bedside. Antibiotics started.
[2022-01-25 11:17] LABS: Erythrocyte Sedimentation Rate 34 MM/HR (0-15)
[2022-01-25 12:51] VITALS: BP 113/63; PULSE 74; RESP 14; O2SAT 98
[2022-01-25 13:42] VITALS: BP 114/57; PULSE 80; RESP 22; O2SAT 99
--- NOTE | 2022-01-25 13:42 | PC.NURSE ---
pt arousable to sternal rub. has been asked to be admitted and doesn't finish conversation with this rn, falls alseep,. RR remains around 12 or 14 while sleeping. skin pwd. secturity checked for contraban and didn't find any. pt eating snacks when awake.
--- NOTE | 2022-01-25 14:24 | PHA.MEDREC ---
Pharmacy Consult ? Medication Reconciliation Pharmacy has completed the medication reconciliation. Patient was slipping in and out of consciousness when visited in the ED (2:20 pm 01/25/22). Used full time staff interpreter services, but was unable to get response from patient. At time of note (2:26 pm 01/25/22), patient has no family on record. [facility] Pharmacy on record was called and patient was reported to not have picked up anything since 08/24/21, of which was short term antibiotic treatment.
[2022-01-25 15:03] VITALS: BP 100/58; PULSE 84; RESP 16; O2SAT 96
[2022-01-25 15:39] LABS: Amphetamine Screen Urine Not Detected (Not Detect); Barbiturates, Urine Not Detected (Not Detect); Benzodiazepines Screen Urine Not Detected (Not Detect); Cannabinoid Screen Urine Not Detected (Not Detect); Cocaine Screen Urine POSITIVE (Not Detect); Fentanyl, urine POSITIVE (Not Detect); Opiate Screen Urine POSITIVE (Not Detect); Phencyclidine Screen Urine Not Detected (Not Detect)
--- NOTE | 2022-01-25 15:47 | PM.IMHP ---
History of Present Illness Date of Service: 01/25/22 Chief Complaint: Cellulitis RLE Patient with history of IV heroin abuse, cocaine abuse, tobacco use, anxiety, depression, history hepatitis c, and ADHD presented to the ED for evaluation of pain, swelling, and redness of the right foot and to a lesser extent, the left foot, ongoing for 3-4 days. He did inject heroin and snort cocaine just prior to arrival and is intermittently somnolent and aggitated in the ED. He denies injecting into the feet. He has not been on any antibiotics outpatient. He denies fevers of chills but reports 10/10 pain in the right foot. In the ED, bilateral foot xrays negative for osteomyelitis. U/S negative for dvt. WBC normal 10.5. Mild hyponatremia of 130.AST/ALT elevated 63/48. CRP 10.09. Glucose 152, no hx diabetes. Tox screen positive for fentanyl and cocaine. Denies any other illicit drug use or mj use. No etoh use. Review of Systems Review of Systems: General: No fevers, malaise, unintentional weight loss Cardiovascular: No chest pain, palpitations Respiratory: No shortness of breath, wheezing, cough GI: No abdominal pain, nausea, vomiting, diarrhea MSK: +pain b/l feet, +swelling. No back pain Neuro: No headaches, weakness Skin: +redness feet PMFSH Medical History (Updated 01/25/22 @ 16:00 by NEHEMIAS Grajeda) Anxiety Asthma Depression Hep C w/o coma, chronic IV drug abuse Substance abuse Family History (Updated 01/25/22 @ 16:00 by NEHEMIAS Grajeda) Mother No problems noted. Surgical History (Updated 01/25/22 @ 16:01 by NEHEMIAS Grajeda) History of appendectomy Social History Alcohol intake: never Patient Tobacco Use Status: Current everyday Tobacco user Smoked in Last 30 Days: Yes Substance Use Type: Crack/Cocaine and Heroin Substance Use Frequency: Chronic Longstanding Substance Use Frequency Other:: Daily Last Used Substance: Just Prior to Admission Advance Directives: No Advance Directives Information Provided: No Meds Allergies Allergy/AdvReac Type Severity Reaction Status Date / Time amoxicillin [AMOXICILLIN] Allergy Intermediate HIVES Verified 08/18/20 00:27 Active Medications: Current Medications Enoxaparin Sodium (Enoxaparin Sodium 40 Mg/0.4 Ml Syringe) 40 mg SUBCUT Q24H [facility] Pharmacy Consult (Consult Rx Vancomycin Dosing) 1 each MISCELLANE DAILY PRN PRN Reason: Consult order Pharmacy Consult (Consult Rx Perform Med Rec) 1 each MISCELLANE ONCE PRN PRN Reason: Consult order Sodium Chloride (0.9 % Sodium Chloride Flush 3 Ml Syringe) 3 ml IVFLUSH QSHIFT [facility] Home Medications Medication Instructions Recorded Confirmed Last Taken Type No Known Home Meds 01/25/22 01/25/22 Unknown History Physical Exam Vital Signs and Narrative: Vital Signs: Last Vital Signs Temp 98.7 F 01/25/22 09:05 Pulse 84 01/25/22 15:03 Resp 16 01/25/22 15:03 BP 100/58 L 01/25/22 15:03 Pulse Ox 96 01/25/22 15:03 O2 Del Method 01/25/22 15:03 BMI result Body Mass Index 27.4 Constitutional - Awake and Alert, No apparent distress Eyes - PERRLA, EOMI Cardiovascular - S1S2, RRR, No edema Respiratory - Normal lung expansion, Normal respiratory effort, No respiratory distress, CTA bilaterally Gastrointestinal - NT / ND; +BS; No rebound or guarding Extremities - no calf tenderness bilaterally, no swelling Musculoskeletal - Normal inspection, normal ROM Skin - Warm/Dry. Erythema, warmth and swelling b/l feet, R>L. See photo Neurological - Alert & oriented x3, No focal deficit Psychological - Appropriate affect Results Labs CBC and Chem 7: 01/25/22 10:27 01/25/22 10:27 Labs: Laboratory Results - last 24 hr 01/25/22 01/25/22 01/25/22 10:27 10:27 10:27 MCV 81.0 MCH 30.2 MCHC 37.2 H RDW 12.2 Plt Count 156 L D MPV 10.6 Immature Gran % (Auto) 0.2 Neut % (Auto) 62.2 Lymph % (Auto) 26.5 [place] % (Auto) 10.6 Eos % (Auto) 0.2 Baso % (Auto) 0.3 Lymph # (Auto) 2.8 [place] # (Auto) 1.1 Eos # (Auto) 0.0 Baso # (Auto) 0.0 Abs Immat Gran (auto) 0.02 Absolute Neuts (auto) 6.6 Absolute Nucleated RBC 0.000 Nucleated RBC % (auto) 0.0 ESR 34 H PT 14.0 H INR 1.2 H APTT 29.5 Anion Gap Estim Creat Clear Calc Estimated GFR Random Glucose Lactic Acid Calcium Total Bilirubin AST ALT Alkaline Phosphatase C-Reactive Protein Total Protein Albumin Urine Opiates Screen Urine Fentanyl Screen Ur Barbiturates Screen Ur Phencyclidine Scrn Ur Amphetamines Screen U Benzodiazepines Scrn Urine Cocaine Screen U Marijuana (THC) Screen COVID-19 ([facility]) COVID-19 Clin Com 01/25/22 01/25/22 01/25/22 10:27 10:27 10:27 MCV MCH MCHC RDW Plt Count MPV Immature Gran % (Auto) Neut % (Auto) Lymph % (Auto) [place] % (Auto) Eos % (Auto) Baso % (Auto) Lymph # (Auto) [place] # (Auto) Eos # (Auto) Baso # (Auto) Abs Immat Gran (auto) Absolute Neuts (auto) Absolute Nucleated RBC Nucleated RBC % (auto) ESR PT INR APTT Anion Gap 12 Estim Creat Clear Calc 107.8 Estimated GFR > 60 Random Glucose 152 H Lactic Acid 0.8 Calcium 8.7 D Total Bilirubin 1.2 H AST 63 H ALT 48 H Alkaline Phosphatase 69 D C-Reactive Protein 10.09 H Total Protein 7.1 Albumin 4.0 Urine Opiates Screen Urine Fentanyl Screen Ur Barbiturates Screen Ur Phencyclidine Scrn Ur Amphetamines Screen U Benzodiazepines Scrn Urine Cocaine Screen U Marijuana (THC) Screen COVID-19 (SABRA) Negative COVID-19 Clin Com See Note 01/25/22 15:16 MCV MCH MCHC RDW Plt Count MPV Immature Gran % (Auto) Neut % (Auto) Lymph % (Auto) [place] % (Auto) Eos % (Auto) Baso % (Auto) Lymph # (Auto) [place] # (Auto) Eos # (Auto) Baso # (Auto) Abs Immat Gran (auto) Absolute Neuts (auto) Absolute Nucleated RBC Nucleated RBC % (auto) ESR PT INR APTT Anion Gap Estim Creat Clear Calc Estimated GFR Random Glucose Lactic Acid Calcium Total Bilirubin AST ALT Alkaline Phosphatase C-Reactive Protein Total Protein Albumin Urine Opiates Screen POSITIVE H Urine Fentanyl Screen POSITIVE H Ur Barbiturates Screen Not Detected Ur Phencyclidine Scrn Not Detected Ur Amphetamines Screen Not Detected U Benzodiazepines Scrn Not Detected Urine Cocaine Screen POSITIVE H U Marijuana (THC) Screen Not Detected COVID-19 ([facility]) COVID-19 Clin Com Imaging Radiologist's Impressions: Impressions Foot X-Ray 01/25/22 10:15 IMPRESSION: There is soft tissue swelling dorsal aspect of the right foot at the level of the metatarsals. No emphysema. No radiographic changes to suggest osteomyelitis at this time. Foot X-Ray 01/25/22 10:15 IMPRESSION: There is soft tissue swelling dorsal aspect of the right foot at the level of the metatarsals. No emphysema. No radiographic changes to suggest osteomyelitis at this time. Venous Duplex 01/25/22 11:49 IMPRESSION: No DVT demonstrated in the bilateral lower extremity. Assessment and Plan (1) Cellulitis of both feet: Status: Acute (2) IV drug abuse: Status: Acute Plan Patient with history of IV heroin abuse, cocaine abuse, tobacco use, anxiety, depression, history hepatitis c, and ADHD admitted for observation and treatment of bilateral cellulitis of lower extremities. 1- Cellulitis, BLE -High risk for MRSA bacteremia due to ongoing IVDA -IV vancomycin -Oxycodone and morphine prn for pain -Blood cultures pending 2-IVDA- ongoing -Last use just prior to arrival -Addiction medicine consult 3-Elevated LFTs -History of hepatitis C. -Hepatitis panel ordered 4-Hyperglycemia -No known history diabetes -A1c ordered. If diabetic, placed at higher risk for serious infection DVT prophylaxis- lovenox Full code Quality Stroke Does the patient have a stroke diagnosis?: No VTE Prior VTE?: No VTE Risk Level:: Medical - moderate - high VTE Device Contraindication: Treatment Not Indicated VTE Drug Contraindication: N/A - Med Ordered
--- NOTE | 2022-01-25 19:05 | PC.NURSE ---
Report taken from Tia RN, first contact with pt. Resting in bed eyes closed, skin pwd respirations even unlabored, easily awoken. Awaiting bed assignment for admission.
[2022-01-25 19:20] VITALS: BP 117/60; PULSE 72; RESP 16; O2SAT 98
[2022-01-25] MEDS: Enoxaparin Sodium 40 MG/0.4 ML SYRINGE SUBCUT (20:45)
[2022-01-25] MEDS: 0.9 % Sodium Chloride Flush 3 ML SYRINGE IVFLUSH (20:46)
[2022-01-26 00:03] VITALS: BP 131/41; PULSE 76; RESP 13; TEMP 37.1; O2SAT 100
[2022-01-26] MEDS: 0.9 % Sodium Chloride Flush 3 ML SYRINGE IVFLUSH ×3 (00:54→17:52)
[2022-01-26] MEDS: vancomycin HCL 1,000 MG in 0.9 % Sodium Chloride 250 ML 270 MG IV ×2 (00:54→14:59)
--- NOTE | 2022-01-26 01:01 | PC.NURSE ---
Pt continues to rest in bed eyes closed, skin pwd respirations even unlabored, easily awoken. VSS, NSR on monitor. IV abx hung and infusing without difficulty. Continues to await bed assignment for admission.
[2022-01-26 03:34] VITALS: BP 120/60; PULSE 78; RESP 18; TEMP 36.3; O2SAT 95
[2022-01-26 08:00] VITALS: BP 112/56; PULSE 83; RESP 18; TEMP 36.6; O2SAT 98
[2022-01-26 10:05] LABS: Estimated Average Glucose 97 mg/dL
[2022-01-26] MEDS: methADONE HCl 20 MG/2 ML ORAL.CONC 30 MG PO (10:25)
[2022-01-26 10:52] LABS: Alanine Aminotransferase 37 U/L (0-40); Albumin Level 3.4 g/dL (3.5-5.0); Alkaline Phosphatase 59 U/L (39-117); Anion Gap 13 (12-20); Bilirubin Total 0.6 mg/dL (0.0-1.0); Blood Urea Nitrogen 10 mg/dL (9-16); Calcium 8.4 mg/dL (8.4-10.2); Carbon Dioxide 30 mmol/L (22-29); Chloride 100 mmol/L (96-108); Estimated Glomerular Filt Rate > 60; Glucose Random 127 mg/dL (60-115); Potassium 3.7 mmol/L (3.3-5.1); Sodium 139 mmol/L (135-145); Total Protein 6.1 g/dL (6.5-8.0)
[2022-01-26 11:11] LABS: Aspartate Amino Transferase 33 U/L (5-37)
[2022-01-26 11:39] VITALS: BP 123/62; PULSE 67; RESP 18; TEMP 37.1; O2SAT 97
--- NOTE | 2022-01-26 12:34 | HO.PM.IMPN ---
Subjective Subjective Date of Service: 01/26/22 Interval History: c/o nausea/diarrhea/anxiety leg redness/pain improved Review of Systems Review of Systems: Yes all other systems are reviewed and are negative Physical Exam Vital Signs: Vital Signs: Last Vital Signs Temp 98.7 F 01/26/22 11:39 Pulse 67 01/26/22 11:39 Resp 18 01/26/22 11:39 BP 123/62 01/26/22 11:39 Pulse Ox 97 01/26/22 11:39 O2 Del Method 01/26/22 11:39 BMI result Body Mass Index 27.4 Gen: uncomfortable, anxious HEENT: sclera anicteric, moist mucus membranes Neck: supple Lungs: clear to auscultation bilaterally Heart: regular rate and rhythm, no murmurs Abd: soft, non-tender, non-distended Ext: no edema Skin: multiple track curiel, improvement in erythema and induration of feet R>L Neuro: alert and oriented x3, no focal findings Psych: appropriate affect Objective Data Active Medications Enoxaparin Sodium (Enoxaparin Sodium 40 Mg/0.4 Ml Syringe) 40 mg SUBCUT Q24H [facility] Last Admin: 01/25/22 20:45 Dose: 40 mg Documented By: ALIVIA Vancomycin HCl 1,000 mg/ (Sodium Chloride) 270 mls @ 270 mls/hr IV Q12H [facility] Last Infusion: 01/26/22 01:56 Dose: 0 mls/hr Documented By: ALIVIA Nicotine Polacrilex (Nicotine Polacrilex Lozenge 2 Mg Lozenge) 2 mg BUCCAL Q2H PRN PRN Reason: smoking cessation- cravings Pharmacy Consult (Consult Rx Vancomycin Dosing) 1 each MISCELLANE DAILY PRN PRN Reason: Consult order Pharmacy Consult (Consult Rx Perform Med Rec) 1 each MISCELLANE ONCE PRN PRN Reason: Consult order Sodium Chloride (0.9 % Sodium Chloride Flush 3 Ml Syringe) 3 ml IVFLUSH QSHIFT [facility] Last Admin: 01/26/22 10:05 Dose: 3 ml Documented By: MELODY Labs CBC & Chem 7: 01/25/22 10:27 01/26/22 09:10 Labs: Laboratory Results - last 24 hr 08/12/22 08/13/22 08/13/22 15:16 09:10 09:10 Anion Gap 13 Estim Creat Clear Calc 126.0 Estimated GFR > 60 Random Glucose 127 H Estimat Average Glucose 97 Hemoglobin A1c % 5.0 Calcium 8.4 Total Bilirubin 0.6 AST 33 D ALT 37 Alkaline Phosphatase 59 Total Protein 6.1 L Albumin 3.4 L Urine Opiates Screen POSITIVE H Urine Fentanyl Screen POSITIVE H Ur Barbiturates Screen Not Detected Ur Phencyclidine Scrn Not Detected Ur Amphetamines Screen Not Detected U Benzodiazepines Scrn Not Detected Urine Cocaine Screen POSITIVE H U Marijuana (THC) Screen Not Detected Microbiology Microbiology Results: Microbiology 01/25/22 10:27 Blood Culture - Preliminary Blood - Venous No growth after 24 hours. Assessment and Plan (1) Cellulitis of both feet: Status: Acute (2) IV drug abuse: Status: Acute Plan hospital d#2 31yo M with history injection heroin + cocaine abuse, tobacco abuse, anxiety, depression admitted for bilateral cellulitis of feet # opioid withdrawal - Addiction Medicine consulted, methadone initiated # celluliits - vancomycin d#2, follow BCx given high risk for endocarditis # cocaine abuse - screen HBV/HCV/HIV, CARE team consult # hypoNa - resolved # transaminaaemia - resolved # VTE ppx: LMWH In my clinical judgment, the patient requires continued hospitalization for the following reasons: IV ABX Quality Stroke Does the patient have a stroke diagnosis?: No VTE Prior VTE?: No VTE Risk Level:: Medical - moderate - high VTE Device Contraindication: Treatment Not Indicated VTE Drug Contraindication: N/A - Med Ordered
--- NOTE | 2022-01-26 13:15 | HO.ADDICT_ITS ---
History of Present Illness Date of Service: 01/27/2022 Chief Complaint: Cellulitis Reason for Consult: opioid withdrawal HPI Narrative: Patient is a 31 year old male with hx of OUD, currently medicallly admitted with cellulitis. Consult requested to address withdrawal sx. patient seen in room 454. Awake, alert, walking around the room, anxious affect. Patient reports he had been in a treatment program in [place] up until a week ago when he left prior to recommended discharge date. Patient states he was incarcerated prior to this. He states he has been using btwn 1- bundles since he left. While in program he was receiving methadone 70mg QD (to be verified). He is reporting withdrawal sx including rhinorrhea, loose stools, nausea, restlessness, anxiety. Last use prior to admission Requesting to restart methadone Review of Systems Constitutional: Reports as per HPI Diagnostics Vital Signs (24Hr): Vital Signs - 24 hr 01/25/22 13:42 01/25/22 15:03 01/25/22 19:20 Temperature Pulse Rate 80 84 72 Respiratory Rate 22 H 16 16 Blood Pressure 114/57 L 100/58 L 117/60 Pulse Oximetry 99 96 98 Oxygen Delivery Method Room Air Room Air Room Air 01/26/22 00:03 01/26/22 03:34 01/26/22 08:00 Temperature 98.7 F 97.4 F 97.8 F Pulse Rate 76 78 83 Respiratory Rate 13 18 18 Blood Pressure 131/41 L 120/60 112/56 L Pulse Oximetry 100 95 98 Oxygen Delivery Method Room Air Room Air Room Air 01/26/22 11:39 Temperature 98.7 F Pulse Rate 67 Respiratory Rate 18 Blood Pressure 123/62 Pulse Oximetry 97 Oxygen Delivery Method Room Air BMI result Body Mass Index 27.4 Labs Results: 01/25/22 10:27 01/26/22 09:10 Labs: Laboratory Results - last 48 hr 01/25/22 01/25/22 01/25/22 10:27 10:27 10:27 WBC 10.5 RBC 3.58 L Hgb 10.8 L Hct 29.0 L MCV 81.0 MCH 30.2 MCHC 37.2 H RDW 12.2 Plt Count 156 L D MPV 10.6 Immature Gran % (Auto) 0.2 Neut % (Auto) 62.2 Lymph % (Auto) 26.5 [place] % (Auto) 10.6 Eos % (Auto) 0.2 Baso % (Auto) 0.3 Lymph # (Auto) 2.8 [place] # (Auto) 1.1 Eos # (Auto) 0.0 Baso # (Auto) 0.0 Abs Immat Gran (auto) 0.02 Absolute Neuts (auto) 6.6 Absolute Nucleated RBC 0.000 Nucleated RBC % (auto) 0.0 ESR 34 H PT 14.0 H INR 1.2 H APTT 29.5 Sodium Potassium Chloride Carbon Dioxide Anion Gap BUN Creatinine Estim Creat Clear Calc Estimated GFR Random Glucose Estimat Average Glucose Hemoglobin A1c % Lactic Acid Calcium Total Bilirubin AST ALT Alkaline Phosphatase C-Reactive Protein Total Protein Albumin Urine Opiates Screen Urine Fentanyl Screen Ur Barbiturates Screen Ur Phencyclidine Scrn Ur Amphetamines Screen U Benzodiazepines Scrn Urine Cocaine Screen U Marijuana (THC) Screen COVID-19 (SABRA) COVID-USINE IO Com 01/25/22 01/25/22 01/25/22 10:27 10:27 10:27 WBC RBC Hgb Hct MCV MCH MCHC RDW Plt Count MPV Immature Gran % (Auto) Neut % (Auto) Lymph % (Auto) [place] % (Auto) Eos % (Auto) Baso % (Auto) Lymph # (Auto) [place] # (Auto) Eos # (Auto) Baso # (Auto) Abs Immat Gran (auto) Absolute Neuts (auto) Absolute Nucleated RBC Nucleated RBC % (auto) ESR PT INR APTT Sodium 130 L Potassium 3.4 Chloride 92 L Carbon Dioxide 29 Anion Gap 12 BUN 14 Creatinine 0.97 Estim Creat Clear Calc 107.8 Estimated GFR > 60 Random Glucose 152 H Estimat Average Glucose Hemoglobin A1c % Lactic Acid 0.8 Calcium 8.7 D Total Bilirubin 1.2 H AST 63 H ALT 48 H Alkaline Phosphatase 69 D C-Reactive Protein 10.09 H Total Protein 7.1 Albumin 4.0 Urine Opiates Screen Urine Fentanyl Screen Ur Barbiturates Screen Ur Phencyclidine Scrn Ur Amphetamines Screen U Benzodiazepines Scrn Urine Cocaine Screen U Marijuana (THC) Screen COVID-19 (SABRA) Negative COVID-19 WISETIVI Com See Note 01/25/22 01/26/22 01/26/22 15:16 09:10 09:10 WBC RBC Hgb Hct MCV MCH MCHC RDW Plt Count MPV Immature Gran % (Auto) Neut % (Auto) Lymph % (Auto) [place] % (Auto) Eos % (Auto) Baso % (Auto) Lymph # (Auto) [place] # (Auto) Eos # (Auto) Baso # (Auto) Abs Immat Gran (auto) Absolute Neuts (auto) Absolute Nucleated RBC Nucleated RBC % (auto) ESR PT INR APTT Sodium 139 Potassium 3.7 Chloride 100 Carbon Dioxide 30 H Anion Gap 13 BUN 10 Creatinine 0.83 Estim Creat Clear Calc 126.0 Estimated GFR > 60 Random Glucose 127 H Estimat Average Glucose 97 Hemoglobin A1c % 5.0 Lactic Acid Calcium 8.4 Total Bilirubin 0.6 AST 33 D ALT 37 Alkaline Phosphatase 59 C-Reactive Protein Total Protein 6.1 L Albumin 3.4 L Urine Opiates Screen POSITIVE H Urine Fentanyl Screen POSITIVE H Ur Barbiturates Screen Not Detected Ur Phencyclidine Scrn Not Detected Ur Amphetamines Screen Not Detected U Benzodiazepines Scrn Not Detected Urine Cocaine Screen POSITIVE H U Marijuana (THC) Screen Not Detected COVID-19 (SABRA) COVID-19 Clin Com Imaging Radiology Impressions: ITS Impressions Foot X-Ray 01/25/22 10:15 IMPRESSION: There is soft tissue swelling dorsal aspect of the right foot at the level of the metatarsals. No emphysema. No radiographic changes to suggest osteomyelitis at this time. Foot X-Ray 01/25/22 10:15 IMPRESSION: There is soft tissue swelling dorsal aspect of the right foot at the level of the metatarsals. No emphysema. No radiographic changes to suggest osteomyelitis at this time. Venous Duplex 01/25/22 11:49 IMPRESSION: No DVT demonstrated in the bilateral lower extremity. Mental Status Exam Mental Status Exam Patient Appearance: Appropriate Level of Consciousness: Awake and Restless Patient Behavior: Cooperative and Anxious Mood Description: Anxious Medications Medications Current Medications Enoxaparin Sodium (Enoxaparin Sodium 40 Mg/0.4 Ml Syringe) 40 mg SUBCUT Q24H [facility] Last Admin: 01/25/22 20:45 Dose: 40 mg Vancomycin HCl 1,000 mg/ (Sodium Chloride) 270 mls @ 270 mls/hr IV Q12H [facility] Last Infusion: 01/26/22 01:56 Dose: Infused Nicotine Polacrilex (Nicotine Polacrilex Lozenge 2 Mg Lozenge) 2 mg BUCCAL Q2H PRN PRN Reason: smoking cessation- cravings Pharmacy Consult (Consult Rx Vancomycin Dosing) 1 each MISCELLANE DAILY PRN PRN Reason: Consult order Pharmacy Consult (Consult Rx Perform Med Rec) 1 each MISCELLANE ONCE PRN PRN Reason: Consult order Sodium Chloride (0.9 % Sodium Chloride Flush 3 Ml Syringe) 3 ml IVFLUSH QSHIFT [facility] Last Admin: 01/26/22 10:05 Dose: 3 ml Allergies Allergies Allergy/AdvReac Type Severity Reaction Status Date / Time amoxicillin [AMOXICILLIN] Allergy Intermediate HIVES Verified 08/18/20 00:27 Assessment & Plan Assessment & Plan (1) Opioid use disorder: Status: Acute Code(s): F11.90 - Opioid use, unspecified, uncomplicated Assessment and Plan: * restart methadone at 30mg today * obtain verification from [facility] regarding last dose * methadone 40mg tmrw I spent ____30__ minutes with the patient and/or on the patient floor today, greater than?50% of which was spent counseling/coordinating care. [facility] Past Medical History Medical History (Updated 01/26/22 @ 13:27 by Jimena Meyer CNP) Anxiety Asthma Depression Hep C w/o coma, chronic IV drug abuse Substance abuse Family History Family History (Updated 01/25/22 @ 16:00 by NEHEMIAS Grajeda) Mother No problems noted. Surgical History Surgical History (Updated 01/25/22 @ 16:01 by NEHEMIAS Grajeda) History of appendectomy Social History Social History Alcohol intake: never Patient Tobacco Use Status: Current everyday Tobacco user Smoked in Last 30 Days: Yes Substance Use Type: Crack/Cocaine and Heroin Substance Use Frequency: Chronic Longstanding Substance Use Frequency Other:: Daily Last Used Substance: Just Prior to Admission Currently Displaying Signs/Symptoms of Drug Intoxication Withdrawal: Yes (fidgeting) Advance Directives: No Advance Directives Information Provided: No
[2022-01-26 16:00] VITALS: BP 130/58; PULSE 79; RESP 18; TEMP 37.1; O2SAT 98
[2022-01-26] MEDS: Enoxaparin Sodium 40 MG/0.4 ML SYRINGE SUBCUT (17:54)
[2022-01-26 23:17] VITALS: BP 129/57; PULSE 74; RESP 16; TEMP 37.1; O2SAT 99
[2022-01-27] MEDS: vancomycin HCL 1,000 MG in 0.9 % Sodium Chloride 250 ML 270 MG IV (00:13)
[2022-01-27] MEDS: 0.9 % Sodium Chloride Flush 3 ML SYRINGE IVFLUSH ×2 (00:14→07:48)
[2022-01-27] MEDS: methADONE HCl 20 MG/2 ML ORAL.CONC 40 MG PO (07:48)
[2022-01-27 07:49] VITALS: BP 122/63; PULSE 74; RESP 20; O2SAT 100
--- NOTE | 2022-01-27 11:21 | PM.DS ---
DS: Providers Provider Date of Service: 01/27/22 Date of admission: 01/25/22 15:38 Date of discharge: 01/27/22 Primary care physician: Unknown Physician Consults: 01/25/22 16:52 Addiction Medicine Routine Consulting Provider: Jimena Meyer Reason for consultation: IVDA, cocaine use Has provider been notified: No DS: Diagnosis Discharge Diagnosis (1) Opioid use disorder: Status: Acute (2) Cellulitis of both feet: Status: Acute (3) Cocaine abuse: Status: Acute (4) Opioid withdrawal: Status: Acute DS: Summary Hospital Course Hospital Course: from admission H+P by hospitalist NEHEMIAS Almeida, 01/25/22: Patient with history of IV heroin abuse, cocaine abuse, tobacco use, anxiety, depression, history? hepatitis c, and ADHD presented to the ED for evaluation of pain, swelling, and redness of the right foot and to a lesser extent, the left foot, ongoing for 3-4 days. He did inject heroin and snort cocaine just prior to arrival and is intermittently somnolent and aggitated in the ED. He denies injecting into the feet. He has not been on any antibiotics outpatient. He denies fevers of chills but reports 10/10 pain in the right foot. In the ED, bilateral foot xrays negative for osteomyelitis. U/S negative for dvt. WBC normal 10.5. Mild hyponatremia of 130.AST/ALT elevated 63/48. CRP 10.09. Glucose 152, no hx diabetes. Tox screen positive for fentanyl and cocaine. Denies any other illicit drug use or mj use. No etoh use. This 31yo M with history injection heroin + cocaine abuse, tobacco abuse, anxiety, and depression was admitted for bilateral cellulitis of feet. He was treated with IV vancomycin. Blood cultures were negative at 48hr. He went into opioid withdrawal and was started on methadone by Addiction Medicine. He was discharged home with instructions to establish primary care and follow-up with [facility] for methadone therapy. He was prescribed 7 days of doxycycline upon discharge. Time Spent with Patient Time attestation: Total time spent providing and/or coordinating discharge services: 35 Discharge coordination time: Greater than 30 minutes Quality: Safe Use of Opioids Does Pt have an Active Cancer Diagnosis on the Problem List?: No Quality: Stroke Does the patient have a stroke diagnosis?: No Physical Exam Vital Signs: Vital Signs: Last Vital Signs Temp 98.8 F 01/26/22 23:17 Pulse 74 01/27/22 07:49 Resp 20 01/27/22 07:49 BP 122/63 01/27/22 07:49 Pulse Ox 100 01/27/22 07:49 O2 Del Method 01/27/22 07:49 BMI result Body Mass Index 27.4 Gen: NAD HEENT: sclera anicteric, moist mucus membranes Neck: supple Lungs: clear to auscultation bilaterally Heart: regular rate and rhythm, no murmurs Abd: soft, non-tender, non-distended Ext: no edema Skin: multiple track curiel, erythema + induration of feet resolved Neuro: alert and oriented x3, no focal findings Psych: appropriate affect DS: Data Data Completed and Pending Completed studies during hospitalization [Text1]: Laboratory Results WBC 10.5 X10*3/uL (4.8-10.8) 01/25/22 10:27 RBC 3.58 X10*6/uL (4.60-5.80) L 01/25/22 10:27 Hgb 10.8 g/dl (14.0-18.0) L 01/25/22 10:27 Hct 29.0 % (42.0-52.0) L 01/25/22 10:27 MCV 81.0 fL (80.0-98.0) 01/25/22 10:27 MCH 30.2 pg (27.0-33.0) 01/25/22 10:27 MCHC 37.2 g/dl (31.0-36.0) H 01/25/22 10:27 RDW 12.2 % (11.0-16.0) 01/25/22 10:27 Plt Count 156 X10*3/uL (160-400) L D 01/25/22 10:27 MPV 10.6 fL (9.4-12.4) 01/25/22 10:27 Immature Gran % (Auto) 0.2 % (0.0-0.4) 01/25/22 10:27 Neut % (Auto) 62.2 % (45-73) 01/25/22 10:27 Lymph % (Auto) 26.5 % (20-40) 01/25/22 10:27 [place] % (Auto) 10.6 % (2-11) 01/25/22 10:27 Eos % (Auto) 0.2 % (0-4) 01/25/22 10:27 Baso % (Auto) 0.3 % (0-2) 01/25/22 10:27 Lymph # (Auto) 2.8 X10*3/uL (1.2-4.9) 01/25/22 10:27 [place] # (Auto) 1.1 X10*3/uL (0.1-1.2) 01/25/22 10: Eos # (Auto) 0.0 X10*3/uL (0.0-0.4) 01/25/22 10: Baso # (Auto) 0.0 X10*3/uL (0.0-0.2) 01/25/22 10: Abs Immat Gran (auto) 0.02 X10*3/uL (0.00-0.03) 01/25/22 10: Absolute Neuts (auto) 6.6 x10*3/uL (2.0-8.3) 01/25/22 10: Absolute Nucleated RBC 0.000 X10*3/uL (0.0-0.012) 01/25/22 10: Nucleated RBC % (auto) 0.0 /100WBC (0.0-0.2) 01/25/22 10: ESR 34 MM/HR (0-15) H 01/25/22 10: PT 14.0 SEC (10.0-13.1) H 01/25/22 10: INR 1.2 (0.9-1.1) H 01/25/22 10:27 APTT 29.5 SEC (26.0-36.4) 01/25/22 10:27 Sodium 139 mmol/L (135-145) 01/26/22 09:10 Potassium 3.7 mmol/L (3.3-5.1) 01/26/22 09:10 Chloride 100 mmol/L (96-108) 01/26/22 09:10 Carbon Dioxide 30 mmol/L (22-29) H 01/26/22 09:10 Anion Gap 13 (12-20) 01/26/22 09:10 BUN 10 mg/dL (9-16) 01/26/22 09:10 Creatinine 0.83 mg/dL (0.5-1.4) 01/26/22 09:10 Estim Creat Clear Calc 126.0 01/26/22 09:10 Estimated GFR > 60 01/26/22 09:10 Random Glucose 127 mg/dL (60-115) H 01/26/22 09:10 Estimat Average Glucose 97 mg/dL 01/26/22 09:10 Hemoglobin A1c % 5.0 % 01/26/22 09:10 Lactic Acid 0.8 mmol/L (0.5-2.0) 01/25/22 10:27 Calcium 8.4 mg/dL (8.4-10.2) 01/26/22 09:10 Total Bilirubin 0.6 mg/dL (0.0-1.0) 01/26/22 09:10 AST 33 U/L (5-37) D 01/26/22 09:10 ALT 37 U/L (0-40) 01/26/22 09:10 Alkaline Phosphatase 59 U/L (39-117) 01/26/22 09:10 C-Reactive Protein 10.09 mg/dL (< or = 0.50) H 01/25/22 10:27 Total Protein 6.1 g/dL (6.5-8.0) L 01/26/22 09:10 Albumin 3.4 g/dL (3.5-5.0) L 01/26/22 09:10 Random Vancomycin 9.0 mcg/mL (15-20) L 01/26/22 21:30 Urine Opiates Screen POSITIVE (Not Detect) H 01/25/22 15:16 Urine Fentanyl Screen POSITIVE (Not Detect) H 01/25/22 15:16 Ur Barbiturates Screen Not Detected (Not Detect) 01/25/22 15:16 Ur Phencyclidine Scrn Not Detected (Not Detect) 01/25/22 15:16 Ur Amphetamines Screen Not Detected (Not Detect) 01/25/22 15:16 U Benzodiazepines Scrn Not Detected (Not Detect) 01/25/22 15:16 Urine Cocaine Screen POSITIVE (Not Detect) H 01/25/22 15:16 U Marijuana (THC) Screen Not Detected (Not Detect) 01/25/22 15:16 COVID-19 (SABRA) Negative (Negative) 01/25/22 10:27 COVID-19 Clin Com See Note 01/25/22 10:27 Impressions Foot X-Ray 01/25/22 10:15 IMPRESSION: There is soft tissue swelling dorsal aspect of the right foot at the level of the metatarsals. No emphysema. No radiographic changes to suggest osteomyelitis at this time. Venous Duplex 01/25/22 11:49 IMPRESSION: No DVT demonstrated in the bilateral lower extremity. Pending studies at discharge: hepatitis B/C and HIV serologies Discharge Plan Discharge Patient Disposition: Home, Self-Care Discharge Diagnosis: cellulitis, opioid use disorder [place] [facility] [place] [facility] [place]Provider Group] - 1 Week Discharge Medications: New methadone [Methadose] 10 mg/mL Concentrate 40 mg PO DAILY Qty: 1 0RF Rx Instructions: Partial Fill upon patient request. nicotine (polacrilex) 2 mg Lozenge 2 mg buccal Q2H PRN (Reason: smoking cessation- cravings) Qty: 30 0RF doxycycline monohydrate 100 mg tablet 100 mg PO BID Qty: 14 0RF Discharge Orders: Discharge Order (Routine); Ordered 01/27/22 Ordered By: Tim Tanner Diet: Advance to usual diet Activity on Discharge: As tolerated Stand Alone Forms: Patient Portal Discharge page Care Plan Goals: recovery Health Concerns: cellulitis opioid use disorder Plan of Treatment: doxycycline 100 mg twice daily x 7 days methadone through [facility] establish primary care as soon as possible avoid substance of abuse Please return to the hospital if you experience recurrent or worsening symptoms, Assessment: See Discharge Summary Patient Instructions: Cellulitis (ED)
--- NOTE | 2022-01-27 11:52 | MHC.CM.PN ---
PT WILL DC HOME TODAY WITH NO SERVICES
--- NOTE | 2022-01-27 14:46 | P.PNADD_ITS ---
Subjective Subjective Date of Service: 01/27/22 Reason For Visit: Cellulitis Interim History: Patient seen in follow up methadone 40mg this morning Patient reports positive effect Denies any withdrawal sx Discharging today Review of Systems Constitutional: Reports as per HPI and Reports no additional constitutional complaints Mental Status Exam Mental Status Exam Patient Appearance: Appropriate Patient Behavior: Appropriate and Cooperative Diagnostics Vital Signs (24Hr): Vital Signs - 24 hr 01/26/22 16:00 01/26/22 23:17 01/27/22 07:49 Temperature 98.7 F 98.8 F Pulse Rate 79 74 74 Respiratory Rate 18 16 20 Blood Pressure 130/58 L 129/57 L 122/63 Pulse Oximetry 98 99 100 Oxygen Delivery Method Room Air Room Air Room Air BMI result Body Mass Index 27.4 Labs Results: 01/25/22 10:27 01/26/22 09:10 Labs: Laboratory Results - last 48 hr 01/25/22 01/26/22 01/26/22 15:16 09:10 09:10 Sodium 139 Potassium 3.7 Chloride 100 Carbon Dioxide 30 H Anion Gap 13 BUN 10 Creatinine 0.83 Estim Creat Clear Calc 126.0 Estimated GFR > 60 Random Glucose 127 H Estimat Average Glucose 97 Hemoglobin A1c % 5.0 Calcium 8.4 Total Bilirubin 0.6 AST 33 D ALT 37 Alkaline Phosphatase 59 Total Protein 6.1 L Albumin 3.4 L Random Vancomycin Urine Opiates Screen POSITIVE H Urine Fentanyl Screen POSITIVE H Ur Barbiturates Screen Not Detected Ur Phencyclidine Scrn Not Detected Ur Amphetamines Screen Not Detected U Benzodiazepines Scrn Not Detected Urine Cocaine Screen POSITIVE H U Marijuana (THC) Screen Not Detected 01/26/22 21:30 Sodium Potassium Chloride Carbon Dioxide Anion Gap BUN Creatinine Estim Creat Clear Calc Estimated GFR Random Glucose Estimat Average Glucose Hemoglobin A1c % Calcium Total Bilirubin AST ALT Alkaline Phosphatase Total Protein Albumin Random Vancomycin 9.0 L Urine Opiates Screen Urine Fentanyl Screen Ur Barbiturates Screen Ur Phencyclidine Scrn Ur Amphetamines Screen U Benzodiazepines Scrn Urine Cocaine Screen U Marijuana (THC) Screen Imaging Radiology Impressions: ITS Impressions Foot X-Ray 01/25/22 10:15 IMPRESSION: There is soft tissue swelling dorsal aspect of the right foot at the level of the metatarsals. No emphysema. No radiographic changes to suggest osteomyelitis at this time. Foot X-Ray 01/25/22 10:15 IMPRESSION: There is soft tissue swelling dorsal aspect of the right foot at the level of the metatarsals. No emphysema. No radiographic changes to suggest osteomyelitis at this time. Venous Duplex 01/25/22 11:49 IMPRESSION: No DVT demonstrated in the bilateral lower extremity. Medications Allergies Allergies Allergy/AdvReac Type Severity Reaction Status Date / Time amoxicillin [AMOXICILLIN] Allergy Intermediate HIVES Verified 08/18/20 00:27 Assessment & Plan Assessment & Plan (1) Opioid use disorder: Status: Acute Code(s): F11.90 - Opioid use, unspecified, uncomplicated Assessment and Plan: * last dose letter provided--patient to follow up with [facility] in the AM I spent ___15___ minutes with the patient and/or on the patient floor today, greater than?50% of which was spent counseling/coordinating care.
[2022-01-28 03:37] LABS: HBS Num1 44.93 mIU/mL (0-7.99); HBsAGNum1 0.21 S/CO (0.00-0.99); HIV AB/AG Nonreactive (Nonreactive); HIV Num 1 0.09 S/CO (0.00-0.99); Hepatitis B Core Antibody Nonreactive (Nonreactive); Hepatitis B Surface Antigen Negative (Negative); ~HepC Num1 16.79 S/CO (0.00-0.79); ~Hepatitis B Surface Antibody REACTIVE (Nonreactive); ~Hepatitis C Antibody Reactive (Nonreactive)
== END 2022-01-27 12:31 | disposition home or self-care (01) ==
LOC: HO.ED 13:48 → HO.EDOVER 15:43 → HO.IMC 01-26 01:03
PROVIDERS: Physician Assistant; Admitting Provider Physician Assistant; Emergency Provider Student in an Organized Health Care Education/Training Program; Visit Provider Family Medicine
DX: L03.116 Cellulitis of left lower limb (principal); L03.115 Cellulitis of right lower limb; R73.9 Hyperglycemia, unspecified; F19.10 Other psychoactive substance abuse, uncomplicated; F11.90 Opioid use, unspecified, uncomplicated; Z20.822 Contact with and (suspected) exposure to COVID-19; B18.2 Chronic viral hepatitis C; F14.10 Cocaine abuse, uncomplicated; M79.671 Pain in right foot; M79.672 Pain in left foot; F41.9 Anxiety disorder, unspecified; F32.A Depression, unspecified; J45.909 Unspecified asthma, uncomplicated; F17.200 Nicotine dependence, unspecified, uncomplicated; Z79.899 Other long term (current) drug therapy
CPT/HCPCS: 36415; 73630; 80053; 80202; 80307; 83036; 83605; 85025; 85610; 85652; 85730; 86140; 86704; 86706; 86803; 87040; 87340; 87389; 87635; 93970; 96361; 96365; 96366; 96367; 96372; 99219; 99285; J0696; J1650; J3370

== ENCOUNTER 2022-02-27 01:37 | Emergency (ER) | payer OTHER, SELFPAY ==
--- NOTE | ~2022-02-27 | CT_ITS ---
EXAMINATION: CT HEAD WITHOUT CONTRAST CLINICAL INFORMATION: Fall with pain COMPARISON: None. TECHNIQUE: Contiguous axial imaging was performed from the skull base to vertex without intravenous contrast. This CT examination was performed using dose optimization techniques as appropriate, variously including the following: * Automated exposure control * Adjustment of mA and/or kV according to patient size (this includes techniques or standardized protocols for targeted exams where dose is matched to indication/reason for exam; i.e. extremities or head) Use of iterative reconstruction technique DLP: 833 mGy-cm. FINDINGS: There is no evidence of acute intracranial hemorrhage or territorial infarction. No abnormal mass effect or midline shift is seen. Kumar to white matter differentiation is well preserved. No extra-axial fluid collections are identified. No hydrocephalus. No significant volume loss. There is no abnormal attenuation within the brain parenchyma. The osseous structures and soft tissues are normal. The mastoid air cells and visualized portions of the paranasal sinuses are well aerated. CT/CT head/brain wo IV con IMPRESSION: No acute intracranial pathology.
[2022-02-27 01:46] VITALS: BP 105/51; BP 132/74; PULSE 62; PULSE 72; RESP 18; TEMP 36.6; O2SAT 97; O2SAT 99; BMI 27.1
--- NOTE | 2022-02-27 02:39 | ED.FALL ---
HPI - Fall General Chief Complaint: ETOH/Substance Use Stated Complaint: FALL S/P HEROIN USE, NO INJURIES Time Seen by Provider: 02/27/22 01:46 Source: EMS Mode of arrival: EMS Limitations: no limitations History of Present Illness HPI Narrative: Patient history of IVDA heroin use was with [employer] when he fell hitting his head. Patient semi-responsive under the influence of heroin which she used earlier today no other injuries Related Data Previous Rx's Medication Instructions Recorded doxycycline monohydrate 100 mg 100 mg PO BID #14 tabs 01/27/22 tablet methadone 10 mg/mL oral 40 mg (4 mL) PO DAILY #1 mL 01/27/22 concentrate (Methadose) nicotine (polacrilex) 2 mg buccal 2 mg buccal Q2H PRN smoking 01/27/22 lozenge cessation- cravings #30 ea Allergies Allergy/AdvReac Type Severity Reaction Status Date / Time amoxicillin [AMOXICILLIN] Allergy Intermediate HIVES Verified 08/18/20 00:27 Review of Systems Review of Systems: Yes all other systems are reviewed and are negative PMFSH Past Medical History Medical History Anxiety Asthma Depression Hep C w/o coma, chronic IV drug abuse Substance abuse Surgical History History of appendectomy Family History Family History Mother No problems noted. Social History Social History Alcohol intake: never Patient Tobacco Use Status: Current everyday Tobacco user Substance Use Type: Crack/Cocaine and Heroin Advance Directives: No Advance Directives Information Provided: No Physical Exam Vital Signs: Vital Signs: Last Vital Signs Temp 97.6 F 02/27/22 04:00 Pulse 52 02/27/22 04:00 Resp 14 02/27/22 04:00 BP 132/73 02/27/22 04:00 Pulse Ox 97 02/27/22 04:00 O2 Del Method 02/27/22 04:00 BMI result Body Mass Index 27.1 Appearance: Alert. Oriented X3. No acute distress. Under influence of heroin Eyes: PERRLA, No Nystagmus HEENT: Pharynx normal. Oral Mucosa moist atraumatic normocephalic Neck: Normal inspection. Neck supple. No midline tenderness CVS: Normal heart rate and rhythm. Pulses normal. Respiratory: No respiratory distress. Equal air entry bilateral, no wheezing/rales/rhonchi Abdomen: Soft and nontender. Bowel sounds are present, no mass palpable, no CVA tenderness Skin: Skin warm and dry. Normal skin color. Normal skin turgor. Extremities: No lower extremity edema. No calf tenderness Neuro: Oriented X 3. No motor deficit. No sensory deficit.No cerebellar signs , cranial nerves II-XII intact MDM - Fall MDM Narrative Medical decision making narrative: Patient With history of substance abuse minor head injury negative for bleed discharge patient home Discharge Plan Discharge Clinical Impression: Opioid use disorder, Head injury Patient Disposition: Home, Self-Care Instructions: Opioid Use Disorder (ED) Additional Instructions: Stop using drugs follow up with detox Prescriptions: No Action methadone [Methadose] 10 mg/mL Concentrate 40 mg PO DAILY Qty: 1 0RF Rx Instructions: Partial Fill upon patient request. nicotine (polacrilex) 2 mg Lozenge 2 mg buccal Q2H PRN (Reason: smoking cessation- cravings) Qty: 30 0RF doxycycline monohydrate 100 mg tablet 100 mg PO BID Qty: 14 0RF
[2022-02-27 04:00] VITALS: BP 132/73; PULSE 52; RESP 14; TEMP 36.4; O2SAT 97
--- NOTE | 2022-02-27 05:38 | PC.NURSE ---
Assumed care at 0330. Patient arousable to verbal / tactile stimulation. Patient lethargic still. Vitals WNL.
[2022-02-27 06:00] VITALS: BP 128/76; PULSE 52; RESP 16; TEMP 36.7; O2SAT 97
== END 2022-02-27 07:00 | disposition home or self-care (01) ==
PROVIDERS: Emergency Provider Internal Medicine
DX: F11.19 Opioid abuse with unspecified opioid-induced disorder (principal); F14.19 Cocaine abuse with unspecified cocaine-induced disorder; R51.9 Headache, unspecified; Z79.899 Other long term (current) drug therapy
CPT/HCPCS: 70450; 99284